=== PATIENT | female | born 1955 | race Caucasian/White ===

== ENCOUNTER → 2016-11-22 | Outpatient (CLI) | payer BC ==
[2016-11-22 07:11] LABS: MEAN CORPUSCULAR HEMOGLOBIN 30.5 pg (27.0-33.0); MEAN CORPUSCULAR HGB CONC 33.1 g/dl (32.0-36.5); RED CELL DISTRIBUTION WIDTH 12.9 % (11.5-14.5); WHITE BLOOD COUNT 10.1 K/mm3 (4.0-10.0)
[2016-11-22 07:35] LABS: ALBUMIN 3.9 GM/DL (3.2-5.2); ALBUMIN/GLOBULIN RATIO 1.18 (1.00-1.93); ALKALINE PHOSPHATASE 78 U/L (45-117); ALT/SGPT 19 U/L (12-78); ANION GAP 9 MEQ/L (8-16); AST/SGOT 13 U/L (15-37); BILIRUBIN,TOTAL 0.2 MG/DL (0.2-1.0); BLOOD UREA NITROGEN 22 MG/DL (7-18); CARBON DIOXIDE LEVEL 28 MEQ/L (21-32); CHLORIDE LEVEL 103 MEQ/L (98-107); CHOLESTEROL LEVEL 152 MG/DL (<200); CREATININE FOR GFR 0.45 MG/DL (0.55-1.02); FREE T4 1.05 NG/DL (0.76-1.46); GLOMERULAR FILTRATION RATE > 60.0 (>45); GLUCOSE, FASTING 149 MG/DL (80-110); POTASSIUM SERUM 4.1 MEQ/L (3.5-5.1); SODIUM LEVEL 140 MEQ/L (136-145); TOTAL PROTEIN 7.2 GM/DL (6.4-8.2); TRIGLYCERIDES LEVEL 153 MG/DL (<150)
== END ==
LOC: M LAB 06:14
PROVIDERS: ATTEND Family Medicine
DX: E03.9 Hypothyroidism, unspecified (principal); E11.9 Type 2 diabetes mellitus without complications

== ENCOUNTER → 2016-12-05 | Outpatient (CLI) | payer BC ==
--- NOTE | 2016-12-05 12:58 | REP ---
PA and lateral chest: Comparison is 01/05/2017. There is a small focal linear density in the left costophrenic angle as an interval change, likely discoid atelectasis. The remainder the lung bishop are clear and unchanged. Cardiac size is borderline, unchanged. The jaime, mediastinum, and bony thorax are unremarkable for patient age, and unchanged. Impression: Small focal discoid atelectasis versus scarring in the left costophrenic angle. Borderline cardiac size. Otherwise, negative chest. Signed by Grayson Yao MD 12/05/2016 12:50 P
== END ==
LOC: M SMT 11:46
PROVIDERS: ATTEND Internal Medicine Pulmonary Disease
DX: J44.9 Chronic obstructive pulmonary disease, unspecified (principal); R91.8 Other nonspecific abnormal finding of lung field

== ENCOUNTER 2016-12-25 08:21 | Emergency (ER) | payer BC ==
[~2016-12-25] VITALS: Ht 154.9 cm; Wt 101.6 kg
[2016-12-25] MEDS ORDERED: ASPI81TA7 PO (08:41)
[2016-12-25] MEDS ORDERED: ATOR40TA PO (08:41)
[2016-12-25] MEDS ORDERED: INVO1TAB2 PO ×2 (08:41)
[2016-12-25] MEDS ORDERED: CPAP (08:41)
[2016-12-25] MEDS ORDERED: LEVO25TA5 PO (08:41)
[2016-12-25] MEDS ORDERED: ONGL10TA3 PO (08:41)
[2016-12-25] MEDS ORDERED: ENAL5TAB PO (08:41)
[2016-12-25] MEDS ORDERED: GLIM4TAB PO (08:41)
[2016-12-25] MEDS ORDERED: ADACEL/BOOSTRIX VACCINE (DIPHTH/PERTUSS/ACELL/TETANUS)0.5ML SYR (90715) IM ONE (08:45)
--- NOTE | 2016-12-25 09:00 | REP ---
CT of the cervical spine: Axial images are acquired in the reformatted sagittal and coronal projections. Skull base, C1-C2 are unremarkable except for osteoarthritis. Vertebral body heights and alignment are normal. There is degenerative disc disease at C 04/05, 05/06, 06/07, and C7-T1. The facets are normally aligned. Prevertebral soft tissues are normal. There are no posterior element fractures. Impression: There is no fracture or listhesis. There is multilevel degenerative disc disease. Signed by Grayson Yao MD 12/25/2016 08:52 A
--- NOTE | 2016-12-25 09:14 | REP ---
Right knee five views: There is no fracture or dislocation. There is no hemarthrosis. There is mild osteoarthritis in the medial and patellofemoral compartments. Mineralization is normal. There are no unusual calcifications. Signed by Grayson Yao MD 12/25/2016 09:06 A
--- NOTE | 2016-12-25 09:21 | REP ---
PA and lateral chest: Comparison is 12/05/2016. The lung bishop are clear. The minor discoid atelectasis noted in the left costophrenic angle previously has resolved. There is no pneumothorax, hemothorax or pulmonary contusion. No rib fractures are identified. No clavicle, scapular fractures are identified. Cardiac size is borderline enlarged, unchanged. The jaime, mediastinum, and bony thorax are unremarkable and unchanged for patient age. Impression: Essentially negative PA and lateral chest. Signed by Grayson Yao MD 12/25/2016 09:12 A
--- NOTE | 2016-12-25 09:22 | REP ---
Right foot four views: There is diffuse demineralization. There is no fracture or dislocation. No calcifications or foreign bodies. Impression: Demineralization. No fracture or dislocation. Signed by Grayson Yao MD 12/25/2016 09:13 A
[2016-12-25] MEDS ORDERED: NORCOTAB PO (11:10)
[2016-12-25 11:21] VITALS: BP 127/57
== END 2016-12-25 11:22 | disposition home or self-care (01) ==
LOC: EDBD 08:21 → M ED 09:35
DX: T14.8 Other injury of unspecified body region (principal); W10.8XXA Fall (on) (from) other stairs and steps, initial encounter; Y92.018 Other place in single-family (private) house as the place of occurrence of the external cause; Y93.89 Activity, other specified; Y99.8 Other external cause status; I10 Essential (primary) hypertension; E11.9 Type 2 diabetes mellitus without complications; I25.10 Atherosclerotic heart disease of native coronary artery without angina pectoris; G47.30 Sleep apnea, unspecified; Z79.899 Other long term (current) drug therapy; Z79.82 Long term (current) use of aspirin; Z88.2 Allergy status to sulfonamides; Z88.8 Allergy status to other drugs, medicaments and biological substances

== ENCOUNTER → 2017-03-23 | Outpatient (CLI) | payer BC ==
[~2017-03-23] MED LIST: ASPI1TAB15 PO; ATOR40TA75 PO; CPAP; ENAL5TAB PO; GLIM4TAB PO; INVO1TAB2 PO; LEVO25TA5 PO; NORCOTAB PO; ONGL10TA3 PO
--- NOTE | 2017-03-23 16:59 | REPMRS ---
Patient History The patient states she had a clinical breast exam in 08/2016. Patient has history of other cancer at age 44 and is nulliparous. Family history of colorectal cancer in sister at age 50 and breast cancer in paternal cousin under age 50. Took estrogen for 10 years. Digital Woman Screen Mammo: March 23, 2017 - Exam #: [id number] Bilateral CC and MLO view(s) were taken. Technologist: Angelica Barajas, Technologist Prior study comparison: March 09, 2016, digital woman screen mammo performed at [facility]. February 19, 2015, digital woman screen mammo performed at [facility]. February 18, 2014, digital woman screen mammo performed at [facility]. FINDINGS: There are scattered fibroglandular densities. There has been no change in the appearance of the mammogram from the prior studies. There is a mild amount of scattered fibroglandular density which is fairly symmetric. There is no interval development of dominant mass, architectural distortion, or clustered microcalcification suggestive of malignancy. ASSESSMENT: BI-RADS/ACR category 1 mammogram. Negative. Recommendation Routine screening mammogram in 1 year (for women over age 40). This mammogram was interpreted with the aid of an FDA-approved computer-aided dectection system. Electronically Signed By: Richard Corona MD 03/23/17 2106
== END ==
LOC: M WHC 16:07
PROVIDERS: ATTEND Obstetrics & Gynecology
DX: Z12.31 Encounter for screening mammogram for malignant neoplasm of breast (principal)

== ENCOUNTER → 2017-12-25 | Outpatient (CLI) | payer BC ==
[2017-12-25 06:59] LABS: BASO # 0.1 10^3/uL (0.0-0.2); BASO % 0.6 % (0.0-1.0); EOS # 0.1 10^3/uL (0.0-0.50); EOS % 1.5 % (0.0-3.0); HEMATOCRIT 41.1 % (36.0-47.0); HEMOGLOBIN 13.7 g/dl (12.0-15.5); IMMATURE GRANULOCYTE % 0.2 % (0-3.0); LYMPH # 2.6 10^3/uL (1.5-4.5); LYMPH % 29.7 % (24.0-44.0); MEAN CORPUSCULAR HEMOGLOBIN 30.6 pg (27.0-33.0); MEAN CORPUSCULAR HGB CONC 33.3 g/dl (32.0-36.5); MEAN CORPUSCULAR VOLUME 91.9 fl (80.0-96.0); MONO # 0.7 10^3/uL (0.0-0.8); MONO % 7.4 % (0.0-5.0); NEUTROPHILS # 5.4 10^3/uL (1.8-7.7); NEUTROPHILS % 60.6 % (36.0-66.0); PLATELET COUNT, AUTOMATED 344 10^3/uL (150-450); RED BLOOD COUNT 4.47 10^6/uL (4.00-5.40); RED CELL DISTRIBUTION WIDTH 12.9 % (11.5-14.5); WHITE BLOOD COUNT 8.8 10^3/uL (4.0-10.0)
[2017-12-25 07:19] LABS: CREATININE, URINE 75.7 MG/DL; CREATININE,RANDOM URINE 75.7 MG/DL; MAU/CREAT RATIO 153.2 MCG/MG (0.0-30.0)
[2017-12-25 07:32] LABS: ALBUMIN 4.1 GM/DL (3.2-5.2); ALBUMIN/GLOBULIN RATIO 1.21 (1.00-1.93); ALKALINE PHOSPHATASE 77 U/L (45-117); ALT/SGPT 19 U/L (12-78); ANION GAP 9 MEQ/L (8-16); AST/SGOT 13 U/L (7-37); BILIRUBIN,TOTAL 0.2 MG/DL (0.2-1.0); BLOOD UREA NITROGEN 24 MG/DL (7-18); CALCIUM LEVEL 9.6 MG/DL (8.8-10.2); CARBON DIOXIDE LEVEL 27 MEQ/L (21-32); CHLORIDE LEVEL 105 MEQ/L (98-107); CHOLESTEROL LEVEL 159 MG/DL (<200); CHOLESTEROL RISK RATIO 3.117 (<5); CREATININE FOR GFR 0.49 MG/DL (0.55-1.30); GLOMERULAR FILTRATION RATE > 60.0 (>45); GLUCOSE, FASTING 139 MG/DL (70-100); HDL CHOLESTEROL 51 MG/DL (>40); LDL CHOLESTEROL 82.2 MG/DL (<100); NON-HDL-C 108 MG/DL; POTASSIUM SERUM 4.3 MEQ/L (3.5-5.1); SODIUM LEVEL 141 MEQ/L (136-145); TOTAL PROTEIN 7.5 GM/DL (6.4-8.2); TRIGLYCERIDES LEVEL 129 MG/DL (<150)
[2017-12-25 11:46] LABS: ESTIMATED AVERAGE GLUCOSE 148 MG/DL (60-110); HEMOGLOBIN A1c 6.8 %
== END ==
LOC: M LAB 06:04
DX: E11.9 Type 2 diabetes mellitus without complications (principal)

== ENCOUNTER → 2018-03-26 | Outpatient (CLI) | payer BC | LOC: M WHC 14:22 | DX: Z12.31 Encounter for screening mammogram for malignant neoplasm of breast (principal); Z80.3 Family history of malignant neoplasm of breast | CPT/HCPCS: 77067 ==

== ENCOUNTER → 2018-05-08 | Outpatient (CLI) | payer BC ==
[2018-05-08 09:43] LABS: BASO % 0.2 % (0.0-1.0); EOS % 0.1 % (0.0-3.0); HEMATOCRIT 40.7 % (36.0-47.0); HEMOGLOBIN 13.4 g/dl (12.0-15.5); IMMATURE GRANULOCYTE % 0.3 % (0-3.0); LYMPH # 2.1 10^3/uL (1.5-4.5); LYMPH % 17.5 % (24.0-44.0); MEAN CORPUSCULAR HEMOGLOBIN 30.2 pg (27.0-33.0); MEAN CORPUSCULAR HGB CONC 32.9 g/dl (32.0-36.5); MEAN CORPUSCULAR VOLUME 91.7 fl (80.0-96.0); MONO # 0.6 10^3/uL (0.0-0.8); MONO % 4.8 % (0.0-5.0); NEUTROPHILS # 9.4 10^3/uL (1.8-7.7); NEUTROPHILS % 77.1 % (36.0-66.0); PLATELET COUNT, AUTOMATED 376 10^3/uL (150-450); RED BLOOD COUNT 4.44 10^6/uL (4.00-5.40); RED CELL DISTRIBUTION WIDTH 12.7 % (11.5-14.5); WHITE BLOOD COUNT 12.1 10^3/uL (4.0-10.0)
[2018-05-08 10:03] LABS: ALBUMIN 4.2 GM/DL (3.2-5.2); ALBUMIN/GLOBULIN RATIO 1.17 (1.00-1.93); ALKALINE PHOSPHATASE 78 U/L (45-117); ALT/SGPT 17 U/L (12-78); ANION GAP 10 MEQ/L (8-16); AST/SGOT 9 U/L (7-37); BILIRUBIN,TOTAL 0.3 MG/DL (0.2-1.0); BLOOD UREA NITROGEN 15 MG/DL (7-18); C REACTIVE PROTEIN QUANTITATIV < 0.30 MG/DL (0.00-0.30); CARBON DIOXIDE LEVEL 29 MEQ/L (21-32); CHLORIDE LEVEL 100 MEQ/L (98-107); CREATININE FOR GFR 0.56 MG/DL (0.55-1.30); GLOMERULAR FILTRATION RATE > 60.0 (>45); GLUCOSE, FASTING 155 MG/DL (70-100); POTASSIUM SERUM 4.3 MEQ/L (3.5-5.1); SODIUM LEVEL 139 MEQ/L (136-145); TOTAL PROTEIN 7.8 GM/DL (6.4-8.2)
[2018-05-08 10:14] LABS: ERYTHROCYTE SEDIMENTATION RATE 9 mm/hr (0-30)
== END ==
LOC: M WUC 08:06
DX: L30.9 Dermatitis, unspecified (principal)

== ENCOUNTER → 2018-12-25 | Outpatient (CLI) | payer BC ==
[~2018-12-25] MED LIST changes: +HYDR-3715 PO; -NORCOTAB PO
[2018-12-25 09:27] LABS: BASO % 0.5 % (0.0-1.0); EOS # 0.1 10^3/uL (0.0-0.50); EOS % 1.5 % (0.0-3.0); HEMATOCRIT 41.6 % (36.0-47.0); HEMOGLOBIN 13.3 g/dl (12.0-15.5); LYMPH # 2.1 10^3/uL (1.5-4.5); LYMPH % 25.9 % (24.0-44.0); MEAN CORPUSCULAR HEMOGLOBIN 30.5 pg (27.0-33.0); MEAN CORPUSCULAR VOLUME 95.4 fl (80.0-96.0); MONO # 0.5 10^3/uL (0.0-0.8); MONO % 6.2 % (0.0-5.0); NEUTROPHILS # 5.4 10^3/uL (1.8-7.7); NEUTROPHILS % 65.5 % (36.0-66.0); PLATELET COUNT, AUTOMATED 321 10^3/uL (150-450); RED BLOOD COUNT 4.36 10^6/uL (4.00-5.40); WHITE BLOOD COUNT 8.2 10^3/uL (4.0-10.0)
[2018-12-25 09:57] LABS: CREATININE, URINE 51.7 MG/DL; MALB URINE SIEMENS 56.3 MG/L; MAU/CREAT RATIO 108.8 MCG/MG (0.0-30.0)
[2018-12-25 09:59] LABS: ALT/SGPT 22 U/L (12-78); BILIRUBIN,TOTAL 0.3 MG/DL (0.2-1.0); BLOOD UREA NITROGEN 21 MG/DL (7-18); CALCIUM LEVEL 9.6 MG/DL (8.8-10.2); CARBON DIOXIDE LEVEL 29 MEQ/L (21-32); CHLORIDE LEVEL 102 MEQ/L (98-107); CHOLESTEROL LEVEL 167 MG/DL (<200); CHOLESTEROL RISK RATIO 3.408 (<5); CREATININE FOR GFR 0.51 MG/DL (0.55-1.30); FREE T3 2.3 PG/ML (2.2-4.0); FREE T4 1.04 NG/DL (0.76-1.46); GLOMERULAR FILTRATION RATE > 60.0 (>45); GLUCOSE, FASTING 152 MG/DL (70-100); HDL CHOLESTEROL 49 MG/DL (>40); LDL CHOLESTEROL 66 MG/DL (<100); NON-HDL-C 118 MG/DL; POTASSIUM SERUM 4.3 MEQ/L (3.5-5.1); SODIUM LEVEL 138 MEQ/L (136-145); TOTAL PROTEIN 7.1 GM/DL (6.4-8.2); TRIGLYCERIDES LEVEL 262 MG/DL (<150)
[2018-12-25 10:35] LABS: HEMOGLOBIN A1c 7.6 %
== END ==
LOC: M WUC 08:02
PROVIDERS: ATTEND Family Medicine
DX: E03.9 Hypothyroidism, unspecified (principal); E11.9 Type 2 diabetes mellitus without complications

== ENCOUNTER → 2019-04-01 | Outpatient (CLI) | payer MEDICARE ==
--- NOTE | 2019-04-01 14:31 | REP ---
BILATERAL SCREENING DIGITAL MAMMOGRAM WITH 3D TOMOSYNTHESIS: There are no palpable abnormalities or other breast complaints. The the patient states she has not had a clinical breast examination in over a year. The the patient states she performs self-breast examinations zero times per year. The Tyrer-Cuzick Score is: 6.7% . Comparison is 02/18/2014. There are scattered areas of fibroglandular density. There is no dominant mass, micro calcific cluster or architectural distortion that would indicate malignancy. Sinus suspect there is a skin lesion anteriorly in the right breast superomedially on the tomosynthesis images. There are no additional findings on 3D tomosynthesiss. There is no change from the prior study. Impression: BIRADS/ACR category 2 mammogram. Benign findings . Recommendation: Routine annual screening mammography. This mammogram was interpreted with the aid of a FDA approved computer-aided detection system. A. Negative mammogram reports should not delay biopsy if a dominant or clinically suspicious mass is present. B. Not all breast cancers are identified by mammography or tomosynthesis. C. Adenosis and dense breasts may obscure an underlying neoplasm. Patient letter M1. Electronically Signed by Grayson Yao MD 04/01/2019 02:23 P
== END ==
LOC: M WHC 13:27
PROVIDERS: ATTEND Obstetrics & Gynecology
DX: Z12.31 Encounter for screening mammogram for malignant neoplasm of breast (principal)

== ENCOUNTER → 2019-10-02 | Outpatient (CLI) | payer MEDICARE ==
[~2019-10-02] MED LIST changes: -GLIM4TAB PO; +GLIM4TAB5 PO
[2019-10-02 09:51] LABS: HEMATOCRIT 41.8 % (36.0-47.0); HEMOGLOBIN 13.5 g/dl (12.0-15.5); MEAN CORPUSCULAR HEMOGLOBIN 30.8 pg (27.0-33.0); MEAN CORPUSCULAR HGB CONC 32.3 g/dl (32.0-36.5); MEAN CORPUSCULAR VOLUME 95.2 fl (80.0-96.0); PLATELET COUNT, AUTOMATED 323 10^3/uL (150-450); RED BLOOD COUNT 4.39 10^6/uL (4.00-5.40); WHITE BLOOD COUNT 8.3 10^3/uL (4.0-10.0)
[2019-10-02 10:25] LABS: CREATININE, URINE 94.3 MG/DL; CREATININE,RANDOM URINE 94.3 MG/DL; MALB URINE SIEMENS 45.9 MG/L; MAU/CREAT RATIO 48.6 MCG/MG (0.0-30.0)
[2019-10-02 10:27] LABS: ALT/SGPT 19 U/L (12-78); BILIRUBIN,TOTAL 0.3 MG/DL (0.2-1.0); BLOOD UREA NITROGEN 19 MG/DL (7-18); CARBON DIOXIDE LEVEL 31 MEQ/L (21-32); CHLORIDE LEVEL 103 MEQ/L (98-107); CHOLESTEROL LEVEL 166 MG/DL (<200); CHOLESTEROL RISK RATIO 3.254 (<5); CREATININE FOR GFR 0.52 MG/DL (0.55-1.30); FREE T3 2.1 PG/ML (2.2-4.0); FREE T4 1.09 NG/DL (0.76-1.46); GLOMERULAR FILTRATION RATE > 60.0 (>45); GLUCOSE, FASTING 133 MG/DL (70-100); HDL CHOLESTEROL 51 MG/DL (>40); LDL CHOLESTEROL 81 MG/DL (<100); NON-HDL-C 115 MG/DL; POTASSIUM SERUM 4.2 MEQ/L (3.5-5.1); SODIUM LEVEL 140 MEQ/L (136-145); TOTAL PROTEIN 7.2 GM/DL (6.4-8.2); TRIGLYCERIDES LEVEL 170 MG/DL (<150)
[2019-10-02 10:50] LABS: ERYTHROCYTE SEDIMENTATION RATE 27 mm/hr (0-30)
== END ==
LOC: M WUC 08:11
PROVIDERS: ATTEND Family Medicine
DX: E03.9 Hypothyroidism, unspecified (principal); E11.9 Type 2 diabetes mellitus without complications; M35.3 Polymyalgia rheumatica

== ENCOUNTER → 2020-02-25 | Outpatient (CLI) | payer MEDICARE ==
--- NOTE | 2020-02-25 14:27 | REP ---
REASON: Pain after sprain. COMPARISON: 12/25/2016 There is a fracture involving the distal diaphysis of the 5th metatarsal, which is slightly comminuted. There are chronic changes seen throughout the right foot as well, status quo. IMPRESSION: Acute 5th metatarsal fracture seen in conjunction with chronic changes. Electronically Signed by Fabiano Snow DO 02/25/2020 05:21 P
== END ==
LOC: M WUC 10:24
PROVIDERS: ATTEND Physician Assistant
DX: S92.351A Displaced fracture of fifth metatarsal bone, right foot, initial encounter for closed fracture (principal); X58.XXXA Exposure to other specified factors, initial encounter; Y92.9 Unspecified place or not applicable

== ENCOUNTER → 2020-04-20 | Outpatient (CLI) | payer MEDICARE ==
[~2020-04-20] MED LIST changes: +ASPI-546 PO; -ASPI1TAB15 PO; +ENAL5TA PO; -ENAL5TAB PO
--- NOTE | 2020-05-05 15:47 | REPMRS ---
Patient History The patient states she had a clinical breast exam in 09/2019. Patient has history of other cancer at age 44 and is nulliparous. Family history of breast cancer under age 50 in paternal cousin, colorectal cancer at age 50 in sister. Took estrogen for 10 years. Digital Woman Screen Mammo: April 20, 2020 - Exam #: [id number] Bilateral CC and MLO view(s) were taken. Technologist: Angelica Barajas, Technologist Prior study comparison: April 01, 2019, bilateral digital woman screen mammo performed at [facility]. March 26, 2018, bilateral digital woman screen mammo performed at [facility]. March 23, 2017, digital woman screen mammo performed at [facility]. FINDINGS: There are scattered fibroglandular densities. The Volpara volumetric breast density category is:B. There has been no change in the appearance of the mammogram from the prior studies. There is a mild amount of scattered fibroglandular density which is fairly symmetric. There is no interval development of dominant mass, architectural distortion, or grouped microcalcification suggestive of malignancy. 3-D tomosynthesis shows no additional findings. Assessment: BI-RADS/ACR category 1 mammogram. Negative Mammogram. Recommendation Routine screening mammogram of both breasts in 1 year (for women over age 40). This patient's Lifetime Breast Cancer Risk is estimated at 7.9 %. This mammogram was interpreted with the aid of an FDA-approved computer-aided dectection system. Electronically Signed By: Richard Corona MD 05/05/20 1535
== END ==
LOC: M WHC 17:14
PROVIDERS: ATTEND Obstetrics & Gynecology
DX: Z12.31 Encounter for screening mammogram for malignant neoplasm of breast (principal); Z85.9 Personal history of malignant neoplasm, unspecified; Z80.0 Family history of malignant neoplasm of digestive organs

== ENCOUNTER → 2020-10-13 | Outpatient (CLI) | payer MEDICARE ==
[2020-10-13 10:13] LABS: HEMATOCRIT 43.6 % (36.0-47.0); HEMOGLOBIN 13.6 g/dl (12.0-15.5); MEAN CORPUSCULAR HEMOGLOBIN 30.1 pg (27.0-33.0); MEAN CORPUSCULAR HGB CONC 31.2 g/dl (32.0-36.5); MEAN CORPUSCULAR VOLUME 96.5 fl (80.0-96.0); PLATELET COUNT, AUTOMATED 344 10^3/uL (150-450); RED BLOOD COUNT 4.52 10^6/uL (4.00-5.40)
[2020-10-13 10:48] LABS: ALT/SGPT 25 U/L (12-78); BILIRUBIN,TOTAL 0.2 MG/DL (0.2-1.0); BLOOD UREA NITROGEN 17 MG/DL (7-18); CALCIUM LEVEL 9.4 MG/DL (8.8-10.2); CARBON DIOXIDE LEVEL 29 MEQ/L (21-32); CHLORIDE LEVEL 103 MEQ/L (98-107); CHOLESTEROL LEVEL 176 MG/DL (<200); CREATININE FOR GFR 0.66 MG/DL (0.55-1.30); FREE T3 2.8 PG/ML (2.2-4.0); FREE T4 1.11 NG/DL (0.76-1.46); GLOMERULAR FILTRATION RATE > 60.0 (>45); GLUCOSE, FASTING 166 MG/DL (70-100); HDL CHOLESTEROL 50 MG/DL (>40); LDL CHOLESTEROL 99 MG/DL (<100); NON-HDL-C 126 MG/DL; POTASSIUM SERUM 4.3 MEQ/L (3.5-5.1); SODIUM LEVEL 140 MEQ/L (136-145); TOTAL PROTEIN 7.2 GM/DL (6.4-8.2); TRIGLYCERIDES LEVEL 136 MG/DL (<150)
[2020-10-13 10:51] LABS: MALB URINE SIEMENS 90.3 MG/L; MAU/CREAT RATIO 85.1 MCG/MG (0.0-30.0)
== END ==
LOC: M WUC 08:05
PROVIDERS: ATTEND Family Medicine
DX: E03.9 Hypothyroidism, unspecified (principal); E11.9 Type 2 diabetes mellitus without complications

== ENCOUNTER → 2021-02-12 | Outpatient (CLI) | payer MEDICARE ==
--- NOTE | 2021-02-12 16:19 | REP ---
INDICATION: PAIN COMPARISON: 02/25/2020. TECHNIQUE: Four views right foot. FINDINGS: There is an old healed fracture of the distal 5th metatarsal. No acute fracture or dislocation is seen. There is mild inferior calcaneal spurring. There is mild dorsal navicular spurring. Mild vascular calcifications are seen in the soft tissues. There is moderate narrowing with subchondral sclerosis at the 1st metatarsophalangeal joint. There is mild spurring of the head of the 1st metatarsal. IMPRESSION: No acute findings. Old healed fracture distal 5th metatarsal. Degenerative changes as above. <Electronically signed by Grayson Suarez > 02/12/21 2147
== END ==
LOC: M WUC 10:15
PROVIDERS: ATTEND Physician Assistant
DX: M79.671 Pain in right foot (principal); Z87.81 Personal history of (healed) traumatic fracture; M77.31 Calcaneal spur, right foot; M19.071 Primary osteoarthritis, right ankle and foot

== ENCOUNTER → 2021-03-01 | Outpatient (CLI) | payer MEDICARE ==
--- NOTE | 2021-03-01 13:32 | REP ---
INDICATION: INJURY. POST TIBIAL TENDON. COMPARISON: Comparison radiographs of the right foot are from February 12, 2021.. TECHNIQUE: Axial, coronal, and sagittal imaging planes utilized. T1 and T2 weighted scans are obtained in the usual fashion with without fat saturation. FINDINGS: There is slight flattening of the plantar arch on sagittal multiplanar re-formation images. There is moderate midfoot osteoarthritis with subcortical cyst formation in the calcaneocuboid and naviculocuneiform articulations. Mild superior spurring is seen at the midfoot articulations as noted radiographically. Cortical and medullary bone signal intensity are otherwise normal. There is no evidence of bony destructive lesion. There is plantar calcaneal spurring with some T2 hyperintensity at the proximal plantar fascial insertion. The Achilles tendon is unremarkable. There is osteoarthritic spurring at the 1st MTP joint. Laterally, the peroneus longus and brevis tendons appear unremarkable. Flexor hallucis longus and flexor digitorum tendons appear intact. There is swelling and increased signal intensity along the distal 2 cm of the tibialis posterior tendon consistent with fairly advanced tibialis posterior tendinosis. No angelica discontinuity is seen but signal intensity is somewhat heterogeneous. I cannot exclude a partial tear. There is no evidence of ligament disruption. exam is otherwise unremarkable. 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 Plantar heel spur. <Electronically signed by Richard Corona > 03/01/21 [id number]
== END ==
LOC: M PLAIMG 11:05
PROVIDERS: ATTEND Podiatrist
DX: S96.011A Strain of muscle and tendon of long flexor muscle of toe at ankle and foot level, right foot, initial encounter (principal); M19.071 Primary osteoarthritis, right ankle and foot; M77.31 Calcaneal spur, right foot; M76.821 Posterior tibial tendinitis, right leg; X58.XXXA Exposure to other specified factors, initial encounter; Y92.9 Unspecified place or not applicable

== ENCOUNTER → 2021-05-17 | Outpatient (CLI) | payer MEDICARE ==
--- NOTE | 2021-05-17 10:46 | REPMRS ---
Patient History The patient states she has not had a clinical breast exam in over a year. Family history of breast cancer under age 50 in paternal cousin, colorectal cancer at age 50 in sister. Took estrogen for 10 years. Moderna vaccine 09/28/19 left arm. 10/25/20 left arm. Patient states no breast complaints today. Patient has signed MRS History Sheet. Digital Woman Screen Mammo: May 17, 2021 - Exam #: [id number] Bilateral CC and MLO view(s) were taken. Technologist: RT Leonor Prior study comparison: April 20, 2020, bilateral digital woman screen mammo performed at [facility]. April 01, 2019, bilateral digital woman screen mammo performed at [facility]. FINDINGS: There are scattered fibroglandular densities. Screening. Digital screening (2D) mammography was performed bilaterally in the CC and MLO projections. Additionally, breast tomosynthesis (3D mammography) was performed bilaterally in the CC and MLO projections. Todays exam was compared to the prior exam/exams. By history, the patient has no complaints of a palpable breast abnormality or other significant breast complaints. The breasts are unchanged in size and shape. There are no stevo-soft tissue densities or spiculated masses. There is no internal architectural distortion. Once again, stable benign appearing calcifications are seen.There are no suspicious stevo-calcific clusters. Skin thickening or nipple retraction is not present. IMPRESSION: BI-RADS Category 2- Benign Findings. There is no evidence of malignant alteration of the breasts. Followup examination recommended in one year. The Volpara volumetric breast density category is B, there are scattered areas of fibroglandular densities. This mammogram was read with the assistance of [facility] [employer],an FDA approved computer aided detection system for mammography. The lifetime Tyrer-Cuzick score is 7.5 % Negative x-ray reports should not delay surgical consultation if a dominant or clinically suspicious mass is present. Not all breast cancers can be identified by mammography. Therefore, we recommend that you continue to perform regular breast self-examination and physical examination and then promptly contact your physician of any concerns or changes. Adenosis and dense breasts may obscure an underlying neoplasm. Assessment: BI-RADS/ACR category 2 mammogram. Benign Findings. Recommendation Routine screening mammogram of both breasts in 1 year. Electronically Signed By: Fabiano Snow DO 05/17/21 [id number]
== END ==
LOC: M WHC 09:50
PROVIDERS: ATTEND Family Medicine
DX: Z12.31 Encounter for screening mammogram for malignant neoplasm of breast (principal); Z80.3 Family history of malignant neoplasm of breast

== ENCOUNTER → 2021-05-18 | Outpatient (CLI) | payer MEDICARE | LOC: M WUC 10:40 | PROVIDERS: ATTEND Family Medicine | DX: M35.3 Polymyalgia rheumatica (principal) ==

== ENCOUNTER → 2021-05-26 | Outpatient (CLI) | payer MEDICARE ==
--- NOTE | 2021-05-26 11:26 | DEXAMM ---
INDICATION: Z13.820 SCR FOR OSTEOPOROSIS. COMPARISON: 07/03/2009, 08/09/2004 TECHNIQUE: Bone density was measured using dual-energy x-ray absorptiometry (DEXA). FINDINGS: AP SPINE L1-L4 BMD 1.405 g/cm2 Young Adult T-Score 1.5 Age Matched Z-Score 3.1. LT FEMUR, TOTAL BMD 1.137 g/cm2 Young Adult T-Score 1.0 Age Matched Z-Score 2.3. LT NECK BMD 1.043 g/cm2 Young Adult T-Score 0.0 Age Matched Z-Score 1.6. RT FEMUR, TOTAL BMD 1.128 g/cm2 Young Adult T-Score 1.0 Age Matched Z-Score 2.3. RT NECK BMD 1.009 g/cm2 Young Adult T-Score -0.2 Age Matched Z-Score 1.4. IMPRESSION: There is normal bone density of the spine. There is normal bone density of the left hip. There is normal bone density of the right hip. The density of the spine has increased 0.7% since the initial exam on 08/09/2004. The density of the spine increased 0.9% since most recent exam on 07/03/2009. The density of the left hip has decreased 8.5% since initial exam on 08/09/2004. The density of the left hip has decreased 8.6% since most recent exam on 07/03/2009. The density of the right hip has decreased 11.1% since the initial exam on 08/09/2004. The density of the right hip has decreased 11.0% since the most recent exam on 07/03/2009. FOLLOW-UP: Recommendation for the next bone density exam: 5 years. <Electronically signed by Grayson Suarez > 05/26/21 1122
== END ==
LOC: M WHC 09:48
PROVIDERS: ATTEND Family Medicine
DX: Z13.820 Encounter for screening for osteoporosis (principal); M85.89 Other specified disorders of bone density and structure, multiple sites

== ENCOUNTER → 2021-11-12 | Outpatient (CLI) | payer MEDICARE ==
[2021-11-12 11:31] LABS: HEMATOCRIT 40.6 % (36.0-47.0); MEAN CORPUSCULAR HEMOGLOBIN 30.4 pg (27.0-33.0); MEAN CORPUSCULAR VOLUME 94.9 fl (80.0-96.0); PLATELET COUNT, AUTOMATED 330 10^3/uL (150-450); RED BLOOD COUNT 4.28 10^6/uL (4.00-5.40); WHITE BLOOD COUNT 9.7 10^3/uL (4.0-10.0)
[2021-11-12 12:01] LABS: HEMOGLOBIN A1c 7.5 %
[2021-11-12 12:21] LABS: ALT/SGPT 26 U/L (12-78); BILIRUBIN,TOTAL 0.3 MG/DL (0.2-1.0); BLOOD UREA NITROGEN 17 MG/DL (7-18); CALCIUM LEVEL 10.3 MG/DL (8.8-10.2); CARBON DIOXIDE LEVEL 31 MEQ/L (21-32); CHLORIDE LEVEL 102 MEQ/L (98-107); CHOLESTEROL LEVEL 180 MG/DL (<200); CHOLESTEROL RISK RATIO 3.673 (<5); CREATININE FOR GFR 0.58 MG/DL (0.55-1.30); FREE T3 2.4 PG/ML (2.2-4.0); FREE T4 1.07 NG/DL (0.76-1.46); GLOMERULAR FILTRATION RATE > 60.0 (>45); GLUCOSE, FASTING 145 MG/DL (70-100); HDL CHOLESTEROL 49 MG/DL (>40); LDL CHOLESTEROL 82 MG/DL (<100); NON-HDL-C 131 MG/DL; POTASSIUM SERUM 4.3 MEQ/L (3.5-5.1); SODIUM LEVEL 138 MEQ/L (136-145); THYROID STIMULATING HORMONE 0.873 uIU/ML (0.358-3.740); TOTAL PROTEIN 7.7 GM/DL (6.4-8.2); TRIGLYCERIDES LEVEL 244 MG/DL (<150)
== END ==
LOC: M WUC 08:08
PROVIDERS: ATTEND Family Medicine
DX: E11.9 Type 2 diabetes mellitus without complications (principal); E03.9 Hypothyroidism, unspecified

== ENCOUNTER → 2022-05-30 | Outpatient (CLI) | payer MEDICARE | LOC: M WHC 10:06 | PROVIDERS: ATTEND Obstetrics & Gynecology | DX: Z12.31 Encounter for screening mammogram for malignant neoplasm of breast (principal) ==

== ENCOUNTER → 2022-12-08 | Outpatient (CLI) | payer MEDICARE ==
[~2022-12-08] MED LIST changes: +CALCTAB89 PO; +ECOT81TA5 PO; +ENAL1TAB48 PO; -ENAL5TA PO; +JANU100T; +LOTE5DRO9; +OMEG10002 PO; +SPIR1CAP; +VITAD400CA FT; +VITMTA PO; +ZINC100T3 PO
[2022-12-08 10:44] LABS: INR 0.88; PARTIAL THROMBOPLASTIN TIME 26.4 SECONDS (24.8-34.2); PROTHROMBIN TIME 12.1 SECONDS (12.5-14.5)
== END ==
LOC: M WUC 08:10
PROVIDERS: ATTEND Internal Medicine Medical Oncology
DX: D37.6 Neoplasm of uncertain behavior of liver, gallbladder and bile ducts (principal)

== ENCOUNTER → 2022-12-09 | Outpatient (CLI) | payer MEDICARE ==
[~2022-12-09] MED LIST changes: +ACETAMINOPHEN 325 MG TAB As Ordered ONE; +ACETAMINOPHEN TAB 650MG DOSE (2X325MG) PO PRN; +ENAL1TAB50 PO; +HYDR-3713 PO; -JANU100T; +JANU100T PO; +LEVO100T5 PO; +LIDOCAINE 1% MDV 20ML VIAL As Ordered ONE; -LOTE5DRO9; +LOTE5DRO9 OU; -SPIR1CAP; +SPIR1CAP INH; -VITAD400CA FT; +VITAD400CA PO
[2022-12-09 11:00] VITALS: BP 146/68
== END ==
LOC: M IRPRO 08:04
PROVIDERS: ATTEND Internal Medicine Medical Oncology
DX: C22.9 Malignant neoplasm of liver, not specified as primary or secondary (principal)

== ENCOUNTER 2022-12-13 14:01 | Observation (INO) | payer MEDICARE ==
[~2022-12-13] VITALS: Ht 154.9 cm; Wt 80.1 kg
[~2022-12-13 14:01] MED LIST changes: -ACETAMINOPHEN 325 MG TAB As Ordered ONE; -ACETAMINOPHEN TAB 650MG DOSE (2X325MG) PO PRN; -ENAL1TAB50 PO; -HYDR-3713 PO; -LEVO100T5 PO; -LIDOCAINE 1% MDV 20ML VIAL As Ordered ONE
[2022-12-13] MEDS ORDERED: MORPHINE 4 MG/ML 1ML VIAL IV ONE (14:50)
[2022-12-13 15:38] LABS: BASO # 0.1 10^3/uL (0.0-0.2); BASO % 0.6 % (0.0-1.0); EOS # 0.1 10^3/uL (0.0-0.5); EOS % 0.3 % (0.0-3.0); HEMATOCRIT 37.3 % (36.0-47.0); HEMOGLOBIN 11.7 g/dl (12.0-15.5); LYMPH # 2.8 10^3/uL (1.5-5.0); LYMPH % 17.5 % (24.0-44.0); MEAN CORPUSCULAR HEMOGLOBIN 29.6 pg (27.0-33.0); MEAN CORPUSCULAR HGB CONC 31.4 g/dl (32.0-36.5); MEAN CORPUSCULAR VOLUME 94.4 fl (80.0-96.0); MONO # 1.5 10^3/uL (0.0-0.8); MONO % 9.6 % (2.0-8.0); NEUTROPHILS # 11.2 10^3/uL (1.5-8.5); NEUTROPHILS % 71.2 % (36.0-66.0); PLATELET COUNT, AUTOMATED 358 10^3/uL (150-450); RED BLOOD COUNT 3.95 10^6/uL (4.00-5.40); WHITE BLOOD COUNT 15.8 10^3/uL (4.0-10.0)
[2022-12-13 15:48] LABS: INR 0.99; PROTHROMBIN TIME 13.3 SECONDS (12.5-14.5)
[2022-12-13 15:49] LABS: PARTIAL THROMBOPLASTIN TIME 21.1 SECONDS (24.8-34.2)
[2022-12-13] MEDS ORDERED: ISOVUE-370 76% 100ML VIAL As Ordered ONE (15:50)
[2022-12-13 16:01] LABS: ALBUMIN 3.5 G/DL (3.2-5.2); ALKALINE PHOSPHATASE 89 U/L (46-116); ALT/SGPT 35 U/L (7.0-40); AST/SGOT 194 U/L (<34); BILIRUBIN,DIRECT 0.1 MG/DL (<0.4); BILIRUBIN,TOTAL 0.3 MG/DL (0.3-1.2); BLOOD UREA NITROGEN 18 MG/DL (9-23); CARBON DIOXIDE LEVEL 29 MMOL/L (20-31); CHLORIDE LEVEL 100 MMOL/L (98-107); CREATININE FOR GFR 0.52 MG/DL (0.55-1.30); GLOMERULAR FILTRATION RATE > 60.0 (>45); GLUCOSE, FASTING 129 MG/DL (74-106); POTASSIUM SERUM 4.1 MMOL/L (3.5-5.1); SODIUM LEVEL 136 MMOL/L (136-145); TOTAL PROTEIN 6.9 G/DL (5.7-8.2)
[2022-12-13] MEDS ORDERED: HYDROMORPHONE HCL 0.5 MG/ 0.5 ML SYRINGE IV ONE (16:20)
[2022-12-13] MEDS ORDERED: HYDR-3713 PO (18:29)
[2022-12-13] MEDS ORDERED: HYDROMORPHONE HCL 0.5 MG/ 0.5 ML SYRINGE IV PRN (18:50)
[2022-12-13] MEDS ORDERED: DEXTROSE 50% 50ML SYRINGE IV PRN (19:40)
[2022-12-13] MEDS ORDERED: ONDANSETRON 4MG ORAL DISINTEGRATING TAB PO PRN (19:40)
[2022-12-13] MEDS ORDERED: GLUCOSE 4GM CHEW TABLET PO PRN (19:40)
[2022-12-13] MEDS ORDERED: GLUCAGON INJ 1MG VIAL SC PRN (19:40)
[2022-12-13] MEDS ORDERED: oxyCODONE 5MG TAB PO PRN ×2 (19:40)
[2022-12-13] MEDS ORDERED: ACETAMINOPHEN TAB 650MG DOSE (2X325MG) PO PRN (19:40)
[2022-12-13] MEDS ORDERED: MORPHINE 4 MG/ML 1ML VIAL IV PRN (19:45)
[2022-12-13 20:27] LABS: RSV AMPLIFICATION NEGATIVE (NEGATIVE)
[2022-12-13] MEDS ORDERED: ATORVASTATIN 20 MG TAB PO SCH (21:00)
[2022-12-13] MEDS ORDERED: INSULIN LISPRO (NovoLOG) PER UNIT SC SCH (21:00)
[2022-12-13] MEDS ORDERED: LEVO100T5 PO (21:06)
[2022-12-13] MEDS ORDERED: ENAL1TAB50 PO (21:06)
[2022-12-13] MEDS ORDERED: HOME MED LIST COMPLETE! XX SCH (21:10)
[2022-12-13 22:28] VITALS: BP 134/76
[2022-12-14 05:31] VITALS: BP 139/75
[2022-12-14] MEDS ORDERED: LEVOTHYROXINE 100MCG TABLET (0.1MG) PO SCH (06:00)
[2022-12-14 06:09] LABS: HEMATOCRIT 35.9 % (36.0-47.0); HEMOGLOBIN 11.7 g/dl (12.0-15.5); MEAN CORPUSCULAR HEMOGLOBIN 30.3 pg (27.0-33.0); MEAN CORPUSCULAR HGB CONC 32.6 g/dl (32.0-36.5); PLATELET COUNT, AUTOMATED 342 10^3/uL (150-450); RED BLOOD COUNT 3.86 10^6/uL (4.00-5.40); WHITE BLOOD COUNT 13.8 10^3/uL (4.0-10.0)
[2022-12-14 06:35] LABS: ALBUMIN 3.4 G/DL (3.2-5.2); ALKALINE PHOSPHATASE 86 U/L (46-116); ALT/SGPT 32 U/L (7.0-40); AST/SGOT 130 U/L (<34); BILIRUBIN,TOTAL 0.4 MG/DL (0.3-1.2); BLOOD UREA NITROGEN 14 MG/DL (9-23); CALCIUM LEVEL 10.7 MG/DL (8.3-10.6); CARBON DIOXIDE LEVEL 28 MMOL/L (20-31); CHLORIDE LEVEL 99 MMOL/L (98-107); CREATININE FOR GFR 0.37 MG/DL (0.55-1.30); GLOMERULAR FILTRATION RATE > 60.0 (>45); GLUCOSE, FASTING 129 MG/DL (74-106); MAGNESIUM LEVEL 1.7 MG/DL (1.8-2.4); POTASSIUM SERUM 4.3 MMOL/L (3.5-5.1); SODIUM LEVEL 134 MMOL/L (136-145); TOTAL PROTEIN 6.7 G/DL (5.7-8.2)
[2022-12-14] MEDS ORDERED: INSULIN LISPRO (NovoLOG) PER UNIT SC SCH (07:30)
[2022-12-14] MEDS ORDERED: TIOTROPIUM INHALER/CAPSULE (SPIRIVA) INH SCH (08:00)
[2022-12-14] MEDS ORDERED: ENALAPRIL MALEATE 10 MG TAB PO SCH (09:00)
[2022-12-14] MEDS ORDERED: ASPIRIN 81MG ENTERIC TABLET PO SCH (09:00)
[2022-12-14] MEDS ORDERED: ACET1TAB55 PO (10:17)
[2022-12-14] MEDS ORDERED: OXYC-517 PO (10:17)
[2022-12-14] MEDS ORDERED: MAGNESIUM OXIDE 400MG TAB (MAG-OX) PO ONE (10:25)
== END 2022-12-14 12:10 | disposition home or self-care (01) ==
LOC: M ED 14:01 → M ED INP 19:36 → M MSPAV 22:28
PROVIDERS: ADMIT Internal Medicine; ATTEND Internal Medicine
DX: R10.11 Right upper quadrant pain (principal); C22.0 Liver cell carcinoma; D72.829 Elevated white blood cell count, unspecified; I10 Essential (primary) hypertension; E11.9 Type 2 diabetes mellitus without complications; E78.5 Hyperlipidemia, unspecified; E03.9 Hypothyroidism, unspecified; J44.9 Chronic obstructive pulmonary disease, unspecified; Z91.040 Latex allergy status; G47.33 Obstructive sleep apnea (adult) (pediatric); Z79.82 Long term (current) use of aspirin; Z79.84 Long term (current) use of oral hypoglycemic drugs; Z79.899 Other long term (current) drug therapy; Z87.891 Personal history of nicotine dependence
CPT/HCPCS: 36415; 74177; 80047; 80048; 80053; 80076; 82140; 83735; 84145; 85025; 85027; 85610; 85730; 86850; 86900; 86901; 87631; 94640; 96374; 96375; 99284; G0378; J1170; J1815; Q9967

== ENCOUNTER → 2022-12-19 | Outpatient (CLI) | payer MEDICARE ==
[~2022-12-19] MED LIST changes: +ACET1TAB55 PO; +ENAL1TAB50 PO; +HYDR-3713 PO; +LEVO100T5 PO; +OXYC-517 PO
== END ==
LOC: M PLARAD 16:15
PROVIDERS: ATTEND Internal Medicine Medical Oncology
DX: D37.6 Neoplasm of uncertain behavior of liver, gallbladder and bile ducts (principal); R91.8 Other nonspecific abnormal finding of lung field
CPT/HCPCS: 78815; A9552

== ENCOUNTER → 2022-12-29 | Outpatient (CLI) | payer MEDICARE | LOC: M ONCR 13:01 | PROVIDERS: ATTEND General Practice | DX: C22.1 Intrahepatic bile duct carcinoma (principal); E03.9 Hypothyroidism, unspecified; E78.5 Hyperlipidemia, unspecified; E11.9 Type 2 diabetes mellitus without complications; G47.33 Obstructive sleep apnea (adult) (pediatric); I10 Essential (primary) hypertension; R91.8 Other nonspecific abnormal finding of lung field; Z79.82 Long term (current) use of aspirin; Z79.84 Long term (current) use of oral hypoglycemic drugs; Z79.890 Hormone replacement therapy; Z79.899 Other long term (current) drug therapy; Z80.0 Family history of malignant neoplasm of digestive organs; Z87.891 Personal history of nicotine dependence; Z91.040 Latex allergy status; Z99.89 Dependence on other enabling machines and devices ==

== ENCOUNTER → 2023-01-19 | Outpatient (CLI) | payer MEDICARE ==
[~2023-01-19] VITALS: Ht 156.2 cm; Wt 78.3 kg
[~2023-01-19] MED LIST changes: +ACET-897 PO; +ATOR1TAB21 PO; +DULC10SU2 PR; +LEXA5TAB13 PO; +SENN8.6T28 PO
[2023-01-19 08:45] VITALS: BP 153/69
== END ==
LOC: M PAL 08:35
PROVIDERS: ATTEND Nurse Practitioner Adult Health
DX: C22.1 Intrahepatic bile duct carcinoma (principal); R91.8 Other nonspecific abnormal finding of lung field; Z51.5 Encounter for palliative care; Z63.79 Other stressful life events affecting family and household; F32.A Depression, unspecified; F41.9 Anxiety disorder, unspecified; G89.3 Neoplasm related pain (acute) (chronic); Z79.891 Long term (current) use of opiate analgesic; K59.00 Constipation, unspecified; Z91.040 Latex allergy status; Z88.8 Allergy status to other drugs, medicaments and biological substances; G47.00 Insomnia, unspecified; E03.9 Hypothyroidism, unspecified; E78.5 Hyperlipidemia, unspecified; E11.9 Type 2 diabetes mellitus without complications; Z80.0 Family history of malignant neoplasm of digestive organs; Z87.891 Personal history of nicotine dependence; Z79.899 Other long term (current) drug therapy; Z79.890 Hormone replacement therapy; Z79.84 Long term (current) use of oral hypoglycemic drugs

== ENCOUNTER → 2023-02-15 | Outpatient (CLI) | payer MEDICARE ==
[~2023-02-15] MED LIST changes: +CEPH500C PO; +ONDA8TAB8 PO; +PROC10TA5 PO
== END ==
LOC: M RAD 14:27
PROVIDERS: ATTEND Specialist
DX: R22.1 Localized swelling, mass and lump, neck (principal)

== ENCOUNTER → 2023-02-16 | Outpatient (CLI) | payer MEDICARE | LOC: M RAD 10:28 | PROVIDERS: ATTEND Internal Medicine Medical Oncology | DX: C22.9 Malignant neoplasm of liver, not specified as primary or secondary (principal); M47.9 Spondylosis, unspecified; J98.11 Atelectasis; J84.10 Pulmonary fibrosis, unspecified; Z95.828 Presence of other vascular implants and grafts ==

== ENCOUNTER → 2023-02-28 | Outpatient (POV) | payer MEDICARE ==
[~2023-02-28] VITALS: Ht 154.9 cm; Wt 75.4 kg
[2023-02-28 10:55] VITALS: BP 152/71; O2SAT 97
== END ==
LOC: M IRPOV 10:27
PROVIDERS: ATTEND Radiology Diagnostic Radiology
DX: Z45.2 Encounter for adjustment and management of vascular access device (principal); Z88.8 Allergy status to other drugs, medicaments and biological substances; Z91.040 Latex allergy status

== ENCOUNTER → 2023-03-01 | Outpatient (CLI) | payer MEDICARE ==
[~2023-03-01] VITALS: Ht 154.9 cm; Wt 77.4 kg
[2023-03-01 10:23] VITALS: BP 115/63; O2SAT 98
== END ==
LOC: M PAL 10:12
PROVIDERS: ATTEND Nurse Practitioner Adult Health
DX: C22.1 Intrahepatic bile duct carcinoma (principal); Z51.5 Encounter for palliative care; F32.A Depression, unspecified; F41.9 Anxiety disorder, unspecified; G89.3 Neoplasm related pain (acute) (chronic); G47.33 Obstructive sleep apnea (adult) (pediatric); K59.00 Constipation, unspecified; Z88.8 Allergy status to other drugs, medicaments and biological substances; G47.00 Insomnia, unspecified; E03.9 Hypothyroidism, unspecified; E78.5 Hyperlipidemia, unspecified; E11.9 Type 2 diabetes mellitus without complications; Z79.891 Long term (current) use of opiate analgesic; Z80.0 Family history of malignant neoplasm of digestive organs; Z91.040 Latex allergy status; Z79.899 Other long term (current) drug therapy; Z66 Do not resuscitate; Z99.89 Dependence on other enabling machines and devices; Z63.79 Other stressful life events affecting family and household

== ENCOUNTER → 2023-04-12 | Outpatient (CLI) | payer MEDICARE ==
[~2023-04-12] MED LIST changes: +LIDO30CR18 TOP
== END ==
LOC: M PAL 08:03
PROVIDERS: ATTEND Nurse Practitioner Adult Health
DX: C22.1 Intrahepatic bile duct carcinoma (principal); R91.8 Other nonspecific abnormal finding of lung field; Z51.5 Encounter for palliative care; Z92.21 Personal history of antineoplastic chemotherapy; F32.A Depression, unspecified; F41.9 Anxiety disorder, unspecified; G89.3 Neoplasm related pain (acute) (chronic); R26.89 Other abnormalities of gait and mobility; R53.83 Other fatigue; E03.9 Hypothyroidism, unspecified; E78.5 Hyperlipidemia, unspecified; I10 Essential (primary) hypertension; E11.9 Type 2 diabetes mellitus without complications; G47.33 Obstructive sleep apnea (adult) (pediatric); Z66 Do not resuscitate; Z63.79 Other stressful life events affecting family and household; Z80.0 Family history of malignant neoplasm of digestive organs; Z87.891 Personal history of nicotine dependence; Z79.899 Other long term (current) drug therapy; Z79.890 Hormone replacement therapy; Z79.51 Long term (current) use of inhaled steroids; Z79.84 Long term (current) use of oral hypoglycemic drugs; Z91.040 Latex allergy status; Z88.8 Allergy status to other drugs, medicaments and biological substances

== ENCOUNTER → 2023-04-19 | Outpatient (CLI) | payer MEDICARE ==
[~2023-04-19] MED LIST changes: +GASTROGRAFIN SOLUTION 30ML As Ordered ONE; +ISOVUE-370 76% 100ML VIAL As Ordered ONE
== END ==
LOC: M RAD 13:04
PROVIDERS: ATTEND Internal Medicine Medical Oncology
DX: C22.9 Malignant neoplasm of liver, not specified as primary or secondary (principal); N28.1 Cyst of kidney, acquired
CPT/HCPCS: 71260; 74177; Q9963; Q9967

== ENCOUNTER 2023-06-05 17:29 | Emergency (ER) | payer MEDICARE ==
[~2023-06-05] VITALS: Ht 152.4 cm; Wt 84.5 kg
[~2023-06-05 17:29] MED LIST changes: -GASTROGRAFIN SOLUTION 30ML As Ordered ONE; -ISOVUE-370 76% 100ML VIAL As Ordered ONE; +MOME0.1C3 TOP
[2023-06-05 20:04] LABS: CK-MB VALUE MASS 1.1 NG/ML (<3.6)
[2023-06-05 20:05] LABS: BLOOD UREA NITROGEN 17 MG/DL (9-23); CALCIUM LEVEL 8.5 MG/DL (8.3-10.6); CARBON DIOXIDE LEVEL 26 MMOL/L (20-31); CHLORIDE LEVEL 107 MMOL/L (98-107); CPK CREATINE PHOSPHOKINASE 62 U/L (34-145); CREATININE FOR GFR 0.43 MG/DL (0.55-1.30); GLOMERULAR FILTRATION RATE > 60.0 (>45); GLUCOSE, FASTING 256 MG/DL (74-106); MB/CK RELATIVE INDEX 1.77 (< OR =4); POTASSIUM SERUM 4.7 MMOL/L (3.5-5.1); SODIUM LEVEL 139 MMOL/L (136-145)
[2023-06-05 20:07] LABS: THYROID STIMULATING HORMONE 0.945 uIU/ML (0.55-4.78)
[2023-06-05 22:00] LABS: HEMATOCRIT 26.9 % (36.0-47.0); HEMOGLOBIN 8.8 g/dl (12.0-15.5); LYMPH # 0.6 10^3/uL (1.5-5.0); LYMPH % 9.6 % (24.0-44.0); MEAN CORPUSCULAR HEMOGLOBIN 34.8 pg (27.0-33.0); MEAN CORPUSCULAR HGB CONC 32.7 g/dl (32.0-36.5); MEAN CORPUSCULAR VOLUME 106.3 fl (80.0-96.0); MONO # 0.3 10^3/uL (0.0-0.8); MONO % 4.3 % (2.0-8.0); NEUTROPHILS # 5.5 10^3/uL (1.5-8.5); NEUTROPHILS % 82.1 % (36.0-66.0); PLATELET COUNT, AUTOMATED 247 10^3/uL (150-450); RED BLOOD COUNT 2.53 10^6/uL (4.00-5.40); WHITE BLOOD COUNT 6.7 10^3/uL (4.0-10.0)
[2023-06-05] MEDS ORDERED: POLYSPORIN TOPICAL OINTMENT 15GM TOP ONE (22:15)
[2023-06-05 22:29] LABS: MB/CK RELATIVE INDEX 1.66 (< OR =4)
[2023-06-05 23:00] VITALS: BP 130/61
[2023-06-05 23:04] VITALS: TEMP 98; O2SAT 95
[2023-06-07] MEDS ORDERED: LEXA5TAB13 PO (15:47)
== END 2023-06-05 23:28 | disposition home or self-care (01) ==
LOC: M ED 17:29
DX: R07.9 Chest pain, unspecified (principal); B34.8 Other viral infections of unspecified site; I10 Essential (primary) hypertension; E78.5 Hyperlipidemia, unspecified; J44.9 Chronic obstructive pulmonary disease, unspecified; F32.A Depression, unspecified; E11.9 Type 2 diabetes mellitus without complications; Z91.040 Latex allergy status; Z88.8 Allergy status to other drugs, medicaments and biological substances; Z79.82 Long term (current) use of aspirin; Z79.02 Long term (current) use of antithrombotics/antiplatelets; Z79.810 Long term (current) use of selective estrogen receptor modulators (SERMs); Z79.899 Other long term (current) drug therapy

== ENCOUNTER 2023-06-08 13:38 | Inpatient (IN) | payer MEDICARE ==
[~2023-06-08] VITALS: Ht 154.9 cm; Wt 89.5 kg
[2023-06-08] MEDS ORDERED: ISOVUE-370 76% 100ML VIAL As Ordered ONE (14:57)
[2023-06-08 15:01] LABS: BASO % 0.2 % (0.0-1.0); EOS % 0.7 % (0.0-3.0); HEMATOCRIT 28.5 % (36.0-47.0); HEMOGLOBIN 9.2 g/dl (12.0-15.5); LYMPH # 1.4 10^3/uL (1.5-5.0); LYMPH % 23.3 % (24.0-44.0); MEAN CORPUSCULAR HEMOGLOBIN 33.8 pg (27.0-33.0); MEAN CORPUSCULAR HGB CONC 32.3 g/dl (32.0-36.5); MEAN CORPUSCULAR VOLUME 104.8 fl (80.0-96.0); MONO # 0.2 10^3/uL (0.0-0.8); MONO % 3.8 % (2.0-8.0); NEUTROPHILS # 4.3 10^3/uL (1.5-8.5); NEUTROPHILS % 71.5 % (36.0-66.0); PLATELET COUNT, AUTOMATED 407 10^3/uL (150-450); RED BLOOD COUNT 2.72 10^6/uL (4.00-5.40)
[2023-06-08] MEDS ORDERED: METOCLOPRAMIDE INJ 10MG/2ML VIAL IV ONE (15:10)
[2023-06-08 15:14] LABS: PROTHROMBIN TIME 12.9 SECONDS (12.5-14.5)
[2023-06-08 15:15] LABS: PARTIAL THROMBOPLASTIN TIME 23.6 SECONDS (24.8-34.2)
[2023-06-08 15:34] LABS: BLOOD UREA NITROGEN 19 MG/DL (9-23); CALCIUM LEVEL 9.1 MG/DL (8.3-10.6); CARBON DIOXIDE LEVEL 28 MMOL/L (20-31); CHLORIDE LEVEL 99 MMOL/L (98-107); CK-MB VALUE MASS < 1.0 NG/ML (<3.6); CPK CREATINE PHOSPHOKINASE 62 U/L (34-145); CREATININE FOR GFR 0.42 MG/DL (0.55-1.30); GLOMERULAR FILTRATION RATE > 60.0 (>45); GLUCOSE, FASTING 161 MG/DL (74-106); MB/CK RELATIVE INDEX 1.61 (< OR =4); POTASSIUM SERUM 5.1 MMOL/L (3.5-5.1); SODIUM LEVEL 133 MMOL/L (136-145)
[2023-06-08 15:41] LABS: RSV AMPLIFICATION NEGATIVE (NEGATIVE)
[2023-06-08] MEDS ORDERED: NS 1,000 ML IV ONE (17:00)
[2023-06-08] MEDS ORDERED: MED REC IN PROGRESS XX SCH (19:10)
[2023-06-08] MEDS ORDERED: oxyCODONE 5MG TAB PO PRN (19:20)
[2023-06-08] MEDS ORDERED: ONDANSETRON 4MG 2ML VIAL IV PRN (19:20)
[2023-06-08 20:22] VITALS: BP 149/67; TEMP 98.1; O2SAT 95
[2023-06-08] MEDS ORDERED: NS 500 ML IV ONE ×2 (20:45→23:00)
[2023-06-08] MEDS ORDERED: SIMVASTATIN 20 MG TAB PO SCH (21:00)
[2023-06-08] MEDS ORDERED: ENOXAPARIN 40MG/0.4ML SYRINGE (J1650 PER 10MG) SC ONE (22:00)
[2023-06-08] MEDS ORDERED: METOCLOPRAMIDE INJ 10MG/2ML VIAL IV PRN (22:00)
[2023-06-08] MEDS ORDERED: LOTE0.5S OU (22:11)
[2023-06-08] MEDS ORDERED: SYST1SOL4 OU (22:15)
[2023-06-08] MEDS ORDERED: SYST1SOL OU (22:15)
[2023-06-08] MEDS ORDERED: HOME MED LIST COMPLETE! XX SCH (22:20)
[2023-06-08 23:39] VITALS: BP 153/72; TEMP 97.7; O2SAT 91
[2023-06-09] VITALS (11 sets, daily range): BP systolic 128–175; BP diastolic 61–81; TEMP 96.6–97.6; O2SAT 94–97
[2023-06-09] MEDS: NS 1,000 ML IV SCH ×4 (00:29→16:17)
[2023-06-09] MEDS: ATORVASTATIN 20 MG TAB PO SCH ×2 (00:33→20:17)
[2023-06-09] MEDS: LEVOTHYROXINE 100MCG TABLET (0.1MG) PO SCH (06:14)
[2023-06-09] MEDS: TIOTROPIUM INHALER/CAPSULE (SPIRIVA) INH SCH (08:09)
[2023-06-09] MEDS: ESCITALOPRAM OXALATE 10 MG TAB (LEXAPRO) PO SCH (08:31)
[2023-06-09] MEDS: ASPIRIN ENTERIC 325MG TAB PO SCH (08:31)
[2023-06-09 08:56] LABS: CHOLESTEROL LEVEL 133 MG/DL (<200); CHOLESTEROL RISK RATIO 2.49 (<5); HDL CHOLESTEROL 53.4 MG/DL (>40); LDL CHOLESTEROL 43.4 MG/DL (<100); NON-HDL-C 79.6 MG/DL; TRIGLYCERIDES LEVEL 181 MG/DL (<150)
[2023-06-09] MEDS ORDERED: NS 1,000 ML IV ONE ×3 (10:25→20:00)
[2023-06-09 11:34] LABS: BASO % 0.3 % (0.0-1.0); EOS # 0.1 10^3/uL (0.0-0.5); EOS % 1.4 % (0.0-3.0); HEMATOCRIT 25.1 % (36.0-47.0); HEMOGLOBIN 8.1 g/dl (12.0-15.5); LYMPH # 1.2 10^3/uL (1.5-5.0); LYMPH % 31.7 % (24.0-44.0); MEAN CORPUSCULAR HEMOGLOBIN 34.5 pg (27.0-33.0); MEAN CORPUSCULAR HGB CONC 32.3 g/dl (32.0-36.5); MEAN CORPUSCULAR VOLUME 106.8 fl (80.0-96.0); MONO # 0.2 10^3/uL (0.0-0.8); MONO % 4.1 % (2.0-8.0); NEUTROPHILS # 2.3 10^3/uL (1.5-8.5); NEUTROPHILS % 62.2 % (36.0-66.0); PLATELET COUNT, AUTOMATED 404 10^3/uL (150-450); RED BLOOD COUNT 2.35 10^6/uL (4.00-5.40); WHITE BLOOD COUNT 3.7 10^3/uL (4.0-10.0)
[2023-06-09 11:44] LABS: BLOOD UREA NITROGEN 12 MG/DL (9-23); CALCIUM LEVEL 8.3 MG/DL (8.3-10.6); CARBON DIOXIDE LEVEL 27 MMOL/L (20-31); CHLORIDE LEVEL 105 MMOL/L (98-107); CREATININE FOR GFR 0.42 MG/DL (0.55-1.30); GLOMERULAR FILTRATION RATE > 60.0 (>45); GLUCOSE, FASTING 130 MG/DL (74-106); POTASSIUM SERUM 4.1 MMOL/L (3.5-5.1); SODIUM LEVEL 138 MMOL/L (136-145)
[2023-06-09] MEDS ORDERED: NS 1,000 ML IV SCH (12:20)
[2023-06-09] MEDS ORDERED: LIDOCAINE 4% TOPICAL SOLN 50 ML BTL TOP ONE (13:00)
[2023-06-09] MEDS: ENOXAPARIN 40MG/0.4ML SYRINGE (J1650 PER 10MG) SC SCH (16:22)
[2023-06-09] MEDS ORDERED: SODIUM CHLORIDE 0.9% INJ 10 ML SYR IV PRN (19:45)
[2023-06-09 19:47] LABS: BLOOD UREA NITROGEN 18 MG/DL (9-23); CALCIUM LEVEL 7.8 MG/DL (8.3-10.6); CARBON DIOXIDE LEVEL 27 MMOL/L (20-31); CHLORIDE LEVEL 107 MMOL/L (98-107); CREATININE FOR GFR 0.42 MG/DL (0.55-1.30); GLOMERULAR FILTRATION RATE > 60.0 (>45); GLUCOSE, FASTING 147 MG/DL (74-106); POTASSIUM SERUM 3.7 MMOL/L (3.5-5.1); SODIUM LEVEL 139 MMOL/L (136-145)
[2023-06-10] MEDS: NS 1,000 ML IV SCH (00:33)
[2023-06-10 04:19] VITALS: BP 145/67; TEMP 97; O2SAT 98
[2023-06-10] MEDS: LEVOTHYROXINE 100MCG TABLET (0.1MG) PO SCH (06:16)
[2023-06-10 07:27] LABS: HEMOGLOBIN 7.5 g/dl (12.0-15.5); MEAN CORPUSCULAR HEMOGLOBIN 34.7 pg (27.0-33.0); MEAN CORPUSCULAR HGB CONC 32.6 g/dl (32.0-36.5); MEAN CORPUSCULAR VOLUME 106.5 fl (80.0-96.0); PLATELET COUNT, AUTOMATED 436 10^3/uL (150-450); RED BLOOD COUNT 2.16 10^6/uL (4.00-5.40); WHITE BLOOD COUNT 3.7 10^3/uL (4.0-10.0)
[2023-06-10 07:33] VITALS: BP 141/67; TEMP 97.3; O2SAT 95
[2023-06-10 07:52] LABS: BLOOD UREA NITROGEN 16 MG/DL (9-23); CALCIUM LEVEL 7.8 MG/DL (8.3-10.6); CARBON DIOXIDE LEVEL 23 MMOL/L (20-31); CHLORIDE LEVEL 108 MMOL/L (98-107); CREATININE FOR GFR 0.36 MG/DL (0.55-1.30); GLOMERULAR FILTRATION RATE > 60.0 (>45); GLUCOSE, FASTING 178 MG/DL (74-106); POTASSIUM SERUM 4.3 MMOL/L (3.5-5.1); SODIUM LEVEL 138 MMOL/L (136-145)
[2023-06-10 08:07] LABS: ATYPICAL LYMPH 3 % (0-5); EOSINOPHILS 4 % (0-3); LYMPHOCYTES 29 % (16-44); MONOCYTES 2 % (0-5); NEUTROPHILS 62 % (28-66); PLATELET ESTIMATE INCREASED (NORMAL)
[2023-06-10 08:08] LABS: MICROCYTOSIS 1+; POLYCHROMASIA 1+; TEAR DROP CELLS 1+
[2023-06-10] MEDS: ASPIRIN ENTERIC 325MG TAB PO SCH (08:41)
[2023-06-10] MEDS: ESCITALOPRAM OXALATE 10 MG TAB (LEXAPRO) PO SCH (08:41)
[2023-06-10] MEDS: ENOXAPARIN 40MG/0.4ML SYRINGE (J1650 PER 10MG) SC SCH (08:41)
[2023-06-10] MEDS: SODIUM CHLORIDE 0.9% INJ 10 ML SYR IV SCH (08:43)
[2023-06-10] MEDS ORDERED: GLUCAGON INJ 1MG VIAL SC PRN (09:05)
[2023-06-10] MEDS ORDERED: GLUCOSE 4GM CHEW TABLET PO PRN (09:05)
[2023-06-10] MEDS ORDERED: DEXTROSE 50% 50ML SYRINGE IV PRN (09:05)
[2023-06-10] MEDS: TIOTROPIUM INHALER/CAPSULE (SPIRIVA) INH SCH (10:25)
[2023-06-10 11:50] VITALS: BP 162/72; TEMP 97.1; O2SAT 94
[2023-06-10] MEDS: INSULIN LISPRO (NovoLOG) PER UNIT SC SCH ×3 (13:09→20:50)
[2023-06-10 16:30] VITALS: BP 132/86; TEMP 97.9; O2SAT 96
[2023-06-10 19:49] VITALS: BP 145/68; TEMP 97.6; O2SAT 97
[2023-06-10] MEDS: ATORVASTATIN 20 MG TAB PO SCH (20:33)
[2023-06-11] VITALS (8 sets, daily range): BP systolic 130–164; BP diastolic 72–84; TEMP 97–97.7; O2SAT 97–98
[2023-06-11 05:04] LABS: HEMATOCRIT 22.7 % (36.0-47.0); HEMOGLOBIN 7.5 g/dl (12.0-15.5); MEAN CORPUSCULAR VOLUME 106.1 fl (80.0-96.0); PLATELET COUNT, AUTOMATED 425 10^3/uL (150-450); RED BLOOD COUNT 2.14 10^6/uL (4.00-5.40); WHITE BLOOD COUNT 3.5 10^3/uL (4.0-10.0)
[2023-06-11 05:32] LABS: BLOOD UREA NITROGEN 12 MG/DL (9-23); CALCIUM LEVEL 8.5 MG/DL (8.3-10.6); CARBON DIOXIDE LEVEL 25 MMOL/L (20-31); CHLORIDE LEVEL 109 MMOL/L (98-107); CREATININE FOR GFR 0.38 MG/DL (0.55-1.30); GLOMERULAR FILTRATION RATE > 60.0 (>45); GLUCOSE, FASTING 149 MG/DL (74-106); POTASSIUM SERUM 4.7 MMOL/L (3.5-5.1); SODIUM LEVEL 140 MMOL/L (136-145)
[2023-06-11 05:49] LABS: ANISOCYTOSIS 2+; BASOPHILS 2 % (0-1); EOSINOPHILS 1 % (0-3); LYMPHOCYTES 47 % (16-44); MICROCYTOSIS 1+; MONOCYTES 2 % (0-5); NEUTROPHILS 48 % (28-66); PLATELET ESTIMATE NORMAL (NORMAL)
[2023-06-11 05:50] LABS: POIKILOCYTOSIS 1+; TEAR DROP CELLS 1+
[2023-06-11 05:51] LABS: HYPOCHROMASIA 1+
[2023-06-11] MEDS: LEVOTHYROXINE 100MCG TABLET (0.1MG) PO SCH (05:54)
[2023-06-11] MEDS: TIOTROPIUM INHALER/CAPSULE (SPIRIVA) INH SCH (08:15)
[2023-06-11] MEDS: ASPIRIN ENTERIC 325MG TAB PO SCH (08:27)
[2023-06-11] MEDS: ESCITALOPRAM OXALATE 10 MG TAB (LEXAPRO) PO SCH (08:27)
[2023-06-11] MEDS: ENOXAPARIN 40MG/0.4ML SYRINGE (J1650 PER 10MG) SC SCH (08:28)
[2023-06-11] MEDS: INSULIN LISPRO (NovoLOG) PER UNIT SC SCH ×4 (08:28→20:19)
[2023-06-11] MEDS: SODIUM CHLORIDE 0.9% INJ 10 ML SYR IV SCH (08:29)
[2023-06-11 13:32] LABS: HEMATOCRIT 28.6 % (36.0-47.0); HEMOGLOBIN 9.2 g/dl (12.0-15.5)
[2023-06-11] MEDS: ATORVASTATIN 20 MG TAB PO SCH (20:22)
[2023-06-12 05:39] VITALS: BP 167/75; TEMP 98; O2SAT 96
[2023-06-12] MEDS: LEVOTHYROXINE 100MCG TABLET (0.1MG) PO SCH (05:39)
[2023-06-12 07:24] VITALS: BP 142/72; TEMP 96.7; O2SAT 97
[2023-06-12] MEDS: TIOTROPIUM INHALER/CAPSULE (SPIRIVA) INH SCH (08:11)
[2023-06-12] MEDS: ASPIRIN ENTERIC 325MG TAB PO SCH (08:21)
[2023-06-12] MEDS: ESCITALOPRAM OXALATE 10 MG TAB (LEXAPRO) PO SCH (08:22)
[2023-06-12] MEDS: ENOXAPARIN 40MG/0.4ML SYRINGE (J1650 PER 10MG) SC SCH (08:22)
[2023-06-12] MEDS: SODIUM CHLORIDE 0.9% INJ 10 ML SYR IV SCH (08:23)
[2023-06-12] MEDS: INSULIN LISPRO (NovoLOG) PER UNIT SC SCH ×2 (08:23→12:20)
[2023-06-12 08:37] LABS: HEMATOCRIT 30.5 % (36.0-47.0); HEMOGLOBIN 9.8 g/dl (12.0-15.5); MEAN CORPUSCULAR HEMOGLOBIN 33.4 pg (27.0-33.0); MEAN CORPUSCULAR HGB CONC 32.1 g/dl (32.0-36.5); MEAN CORPUSCULAR VOLUME 104.1 fl (80.0-96.0); PLATELET COUNT, AUTOMATED 474 10^3/uL (150-450); RED BLOOD COUNT 2.93 10^6/uL (4.00-5.40); WHITE BLOOD COUNT 2.5 10^3/uL (4.0-10.0)
[2023-06-12] MEDS ORDERED: GLIMEPIRIDE 2 MG TAB PO SCH (09:00)
[2023-06-12] MEDS ORDERED: ENALAPRIL MALEATE 10 MG TAB PO SCH (09:00)
[2023-06-12] MEDS ORDERED: SITagliptin 50 MG TAB (JANUVIA) PO SCH (09:00)
[2023-06-12] MEDS ORDERED: SENNA 8.6 MG TAB (SENOKOT) PO SCH (09:00)
[2023-06-12] MEDS ORDERED: MULTIVITAMINS/MINERALS THERAP 1 TAB PO SCH (09:00)
[2023-06-12 09:09] LABS: BLOOD UREA NITROGEN 11 MG/DL (9-23); CALCIUM LEVEL 9.3 MG/DL (8.3-10.6); CARBON DIOXIDE LEVEL 28 MMOL/L (20-31); CHLORIDE LEVEL 105 MMOL/L (98-107); CREATININE FOR GFR 0.42 MG/DL (0.55-1.30); GLOMERULAR FILTRATION RATE > 60.0 (>45); GLUCOSE, FASTING 206 MG/DL (74-106); POTASSIUM SERUM 4.7 MMOL/L (3.5-5.1); SODIUM LEVEL 140 MMOL/L (136-145)
[2023-06-12 09:17] LABS: ATYPICAL LYMPH 15 % (0-5); EOSINOPHILS 1 % (0-3); LYMPHOCYTES 45 % (16-44); MONOCYTES 9 % (0-5); NEUTROPHILS 30 % (28-66); PLATELET ESTIMATE INCREASED (NORMAL)
[2023-06-12 09:18] LABS: POLYCHROMASIA 2+
[2023-06-12] MEDS ORDERED: SENOKOT S TAB PO SCH (10:50)
[2023-06-12] MEDS ORDERED: ACETAMINOPHEN 500 MG TAB PO PRN (10:55)
[2023-06-12] MEDS ORDERED: EMLA CREAM 5GM TUBE (LIDOCAINE/PRILOCAINE) TOP SCH (10:55)
[2023-06-12] MEDS ORDERED: SELF1KIT AD (10:58)
[2023-06-12] MEDS ORDERED: ASPI32ECTA PO (11:00)
[2023-06-12] MEDS ORDERED: ATOR80TA59 PO (11:00)
[2023-06-12 13:00] VITALS: BP 156/72
== END 2023-06-12 13:29 | disposition home or self-care (01) | DRG 65 ==
LOC: M ED 13:38 → M ED INP 16:52 → M PCU 20:12
PROVIDERS: ADMIT General Practice; ATTEND General Practice
PROC: 30233N1 Transfusion of Nonautologous Red Blood Cells into Peripheral Vein, Percutaneous Approach (ICD-10-PCS; principal; 2023-06-11)
PROC: B246ZZZ Ultrasonography of Right and Left Heart (ICD-10-PCS; 2023-06-12)
DX: I63.9 Cerebral infarction, unspecified (principal); C22.1 Intrahepatic bile duct carcinoma; C78.00 Secondary malignant neoplasm of unspecified lung; Z66 Do not resuscitate; G47.33 Obstructive sleep apnea (adult) (pediatric); E03.9 Hypothyroidism, unspecified; E78.5 Hyperlipidemia, unspecified; I10 Essential (primary) hypertension; G43.909 Migraine, unspecified, not intractable, without status migrainosus; E11.9 Type 2 diabetes mellitus without complications; D64.9 Anemia, unspecified; R09.1 Pleurisy; Z87.891 Personal history of nicotine dependence; Z79.82 Long term (current) use of aspirin; Z79.890 Hormone replacement therapy; Z79.899 Other long term (current) drug therapy; Z79.84 Long term (current) use of oral hypoglycemic drugs; Z91.040 Latex allergy status; Z88.8 Allergy status to other drugs, medicaments and biological substances; Z20.822 Contact with and (suspected) exposure to COVID-19; E66.9 Obesity, unspecified; Z68.36 Body mass index [BMI] 36.0-36.9, adult

== ENCOUNTER → 2023-07-04 | Outpatient (CLI) | payer MEDICARE ==
[~2023-07-04] VITALS: Ht 152.4 cm; Wt 86.1 kg
[~2023-07-04] MED LIST changes: +ASPI32ECTA PO; +ATOR80TA59 PO; +LOTE0.5S OU; +SELF1KIT AD; +SYST1SOL OU; +SYST1SOL4 OU
[2023-07-04 10:07] VITALS: BP 172/81; O2SAT 96
== END ==
LOC: M PAL 09:57
PROVIDERS: ATTEND Nurse Practitioner Adult Health
DX: C22.1 Intrahepatic bile duct carcinoma (principal); Z51.5 Encounter for palliative care; H54.7 Unspecified visual loss; F41.9 Anxiety disorder, unspecified; R63.0 Anorexia; G89.3 Neoplasm related pain (acute) (chronic); Z66 Do not resuscitate; Z80.0 Family history of malignant neoplasm of digestive organs; Z79.84 Long term (current) use of oral hypoglycemic drugs; Z79.890 Hormone replacement therapy; Z79.899 Other long term (current) drug therapy; Z86.73 Personal history of transient ischemic attack (TIA), and cerebral infarction without residual deficits; Z87.891 Personal history of nicotine dependence; Z88.0 Allergy status to penicillin; Z88.8 Allergy status to other drugs, medicaments and biological substances; Z91.040 Latex allergy status; Z99.89 Dependence on other enabling machines and devices

== ENCOUNTER → 2023-07-07 | Outpatient (CLI) | payer MEDICARE ==
[~2023-07-07] MED LIST changes: +GASTROGRAFIN SOLUTION 30ML ONE; +ISOVUE-370 76% 100ML VIAL ONE; +MAGN400T2 PO
== END ==
LOC: M PLAIMG 11:03
PROVIDERS: ATTEND Internal Medicine Medical Oncology
DX: C22.1 Intrahepatic bile duct carcinoma (principal); N28.1 Cyst of kidney, acquired; N20.0 Calculus of kidney; K57.90 Diverticulosis of intestine, part unspecified, without perforation or abscess without bleeding; M47.816 Spondylosis without myelopathy or radiculopathy, lumbar region
CPT/HCPCS: 71260; 74177; Q9963; Q9967

== ENCOUNTER 2023-08-07 21:36 | Emergency (ER) | payer MEDICARE ==
[~2023-08-07] VITALS: Ht 152.4 cm; Wt 86.4 kg
[~2023-08-07 21:36] MED LIST changes: +ASPI81TA26 PO; +CLOP75TA99 PO; -GASTROGRAFIN SOLUTION 30ML ONE; -ISOVUE-370 76% 100ML VIAL ONE
[2023-08-07 23:26] LABS: HEMATOCRIT 26.8 % (36.0-47.0); HEMOGLOBIN 8.8 g/dl (12.0-15.5); MEAN CORPUSCULAR HEMOGLOBIN 35.1 pg (27.0-33.0); MEAN CORPUSCULAR HGB CONC 32.8 g/dl (32.0-36.5); MEAN CORPUSCULAR VOLUME 106.8 fl (80.0-96.0); PLATELET COUNT, AUTOMATED 371 10^3/uL (150-450); RED BLOOD COUNT 2.51 10^6/uL (4.00-5.40); WHITE BLOOD COUNT 8.3 10^3/uL (4.0-10.0)
[2023-08-07 23:47] LABS: LIPASE 40 U/L (12-53)
[2023-08-07 23:48] LABS: CK-MB VALUE MASS < 1.0 NG/ML (<3.6)
[2023-08-07 23:49] LABS: ALBUMIN 3.5 G/DL (3.2-5.2); ALKALINE PHOSPHATASE 78 U/L (46-116); ALT/SGPT 19 U/L (7.0-40); AST/SGOT 23 U/L (<34); BILIRUBIN,DIRECT < 0.1 MG/DL (<0.4); BILIRUBIN,TOTAL 0.2 MG/DL (0.3-1.2); CPK CREATINE PHOSPHOKINASE 62 U/L (34-145); MB/CK RELATIVE INDEX 1.61 (< OR =4); TOTAL PROTEIN 6.7 G/DL (5.7-8.2)
[2023-08-07 23:53] LABS: ANISOCYTOSIS 2+; ATYPICAL LYMPH 1 % (0-5); EOSINOPHILS 1 % (0-3); LYMPHOCYTES 34 % (16-44); MONOCYTES 10 % (0-5); NEUTROPHILS 47 % (28-66); PLATELET ESTIMATE NORMAL (NORMAL); POLYCHROMASIA 1+
[2023-08-08 01:07] LABS: CPK CREATINE PHOSPHOKINASE 65 U/L (34-145)
[2023-08-08 01:12] LABS: BLOOD UREA NITROGEN 28 MG/DL (9-23); CALCIUM LEVEL 9.3 MG/DL (8.3-10.6); CARBON DIOXIDE LEVEL 28 MMOL/L (20-31); CHLORIDE LEVEL 100 MMOL/L (98-107); CREATININE FOR GFR 0.47 MG/DL (0.55-1.30); GLOMERULAR FILTRATION RATE > 60.0 (>45); GLUCOSE, FASTING 198 MG/DL (74-106); MB/CK RELATIVE INDEX 1.53 (< OR =4); POTASSIUM SERUM 4.5 MMOL/L (3.5-5.1); SODIUM LEVEL 137 MMOL/L (136-145)
[2023-08-08] MEDS ORDERED: NS 1,000 ML IV ONE (01:35)
[2023-08-08] MEDS ORDERED: MORPHINE 4 MG/ML 1ML VIAL IV PRN (01:40)
[2023-08-08] MEDS ORDERED: ONDANSETRON 4MG 2ML VIAL IV ONE (01:40)
[2023-08-08] MEDS ORDERED: ISOVUE-370 76% 100ML VIAL As Ordered ONE (01:48)
[2023-08-08 05:15] VITALS: BP 137/65; TEMP 98.7; O2SAT 93
== END 2023-08-08 06:01 | disposition home or self-care (01) ==
LOC: M ED 21:36 → EDBD 21:36 → M ED 08-08 06:01
DX: R07.9 Chest pain, unspecified (principal); R10.9 Unspecified abdominal pain; E11.9 Type 2 diabetes mellitus without complications; I10 Essential (primary) hypertension; E78.5 Hyperlipidemia, unspecified; Z79.84 Long term (current) use of oral hypoglycemic drugs; Z91.040 Latex allergy status; Z88.8 Allergy status to other drugs, medicaments and biological substances; Z79.82 Long term (current) use of aspirin; Z79.02 Long term (current) use of antithrombotics/antiplatelets; Z79.83 Long term (current) use of bisphosphonates; Z79.810 Long term (current) use of selective estrogen receptor modulators (SERMs); Z79.899 Other long term (current) drug therapy
CPT/HCPCS: 71045; 71275; 74177; 80048; 80076; 82550; 82553; 83605; 83690; 84484; 85025; 87040; 87486; 87581; 87633; 87798; 93005; 93041; 96361; 96374; 96375; 99285; J2405; Q9967

== ENCOUNTER → 2023-08-17 | Outpatient (CLI) | payer MEDICARE ==
[~2023-08-17] VITALS: Ht 152.4 cm; Wt 89.4 kg
[~2023-08-17] MED LIST changes: +CLAR10CA3 PO
[2023-08-17 13:10] VITALS: BP 167/85; O2SAT 97
== END ==
LOC: M PAL 12:52
PROVIDERS: ATTEND Nurse Practitioner Adult Health
DX: C22.1 Intrahepatic bile duct carcinoma (principal); Z51.5 Encounter for palliative care; H54.7 Unspecified visual loss; F32.A Depression, unspecified; F41.9 Anxiety disorder, unspecified; R63.0 Anorexia; G89.3 Neoplasm related pain (acute) (chronic); Z66 Do not resuscitate; Z79.02 Long term (current) use of antithrombotics/antiplatelets; Z79.82 Long term (current) use of aspirin; Z79.84 Long term (current) use of oral hypoglycemic drugs; Z79.890 Hormone replacement therapy; Z79.891 Long term (current) use of opiate analgesic; Z79.899 Other long term (current) drug therapy; Z80.0 Family history of malignant neoplasm of digestive organs; Z86.73 Personal history of transient ischemic attack (TIA), and cerebral infarction without residual deficits; Z87.891 Personal history of nicotine dependence; Z88.8 Allergy status to other drugs, medicaments and biological substances; Z91.040 Latex allergy status; Z99.89 Dependence on other enabling machines and devices

== ENCOUNTER → 2023-10-19 | Outpatient (CLI) | payer MEDICARE ==
[~2023-10-19] VITALS: Ht 154.9 cm; Wt 88.6 kg
[~2023-10-19] MED LIST changes: +THERTAB52 PO
[2023-10-19 14:00] VITALS: BP 180/83; O2SAT 95
== END ==
LOC: M PAL 13:33
PROVIDERS: ATTEND Nurse Practitioner Adult Health
DX: C22.1 Intrahepatic bile duct carcinoma (principal); Z51.5 Encounter for palliative care; F32.A Depression, unspecified; F41.9 Anxiety disorder, unspecified; R63.0 Anorexia; G89.3 Neoplasm related pain (acute) (chronic); Z66 Do not resuscitate; Z79.02 Long term (current) use of antithrombotics/antiplatelets; Z79.620 Long term (current) use of immunosuppressive biologic; Z79.82 Long term (current) use of aspirin; Z79.84 Long term (current) use of oral hypoglycemic drugs; Z79.890 Hormone replacement therapy; Z79.891 Long term (current) use of opiate analgesic; Z79.899 Other long term (current) drug therapy; Z80.0 Family history of malignant neoplasm of digestive organs; Z86.73 Personal history of transient ischemic attack (TIA), and cerebral infarction without residual deficits; Z87.891 Personal history of nicotine dependence; Z88.8 Allergy status to other drugs, medicaments and biological substances; Z91.040 Latex allergy status; Z99.89 Dependence on other enabling machines and devices

== ENCOUNTER → 2023-10-23 | Outpatient (CLI) | payer MEDICARE ==
[~2023-10-23] MED LIST changes: +GASTROGRAFIN SOLUTION 30ML As Ordered ONE; +ISOVUE-370 76% 100ML VIAL As Ordered ONE
== END ==
LOC: M RAD 14:21
PROVIDERS: ATTEND Nurse Practitioner
DX: C22.1 Intrahepatic bile duct carcinoma (principal)
CPT/HCPCS: 71260; 74177; Q9963; Q9967

== ENCOUNTER → 2023-11-16 | Outpatient (CLI) | payer MEDICARE ==
[~2023-11-16] VITALS: Ht 154.9 cm; Wt 87.0 kg
[~2023-11-16] MED LIST changes: -GASTROGRAFIN SOLUTION 30ML As Ordered ONE; -ISOVUE-370 76% 100ML VIAL As Ordered ONE
[2023-11-16 14:35] VITALS: BP 156/81; O2SAT 95
== END ==
LOC: M PAL 14:26
PROVIDERS: ATTEND Nurse Practitioner Adult Health
DX: G89.3 Neoplasm related pain (acute) (chronic) (principal); C22.1 Intrahepatic bile duct carcinoma; Z51.5 Encounter for palliative care; F41.9 Anxiety disorder, unspecified; Z66 Do not resuscitate; Z79.02 Long term (current) use of antithrombotics/antiplatelets; Z79.620 Long term (current) use of immunosuppressive biologic; Z79.82 Long term (current) use of aspirin; Z79.84 Long term (current) use of oral hypoglycemic drugs; Z79.890 Hormone replacement therapy; Z79.891 Long term (current) use of opiate analgesic; Z79.899 Other long term (current) drug therapy; Z80.0 Family history of malignant neoplasm of digestive organs; Z86.73 Personal history of transient ischemic attack (TIA), and cerebral infarction without residual deficits; Z87.891 Personal history of nicotine dependence; Z88.8 Allergy status to other drugs, medicaments and biological substances; Z91.040 Latex allergy status; Z99.89 Dependence on other enabling machines and devices

== ENCOUNTER → 2023-12-27 | Outpatient (CLI) | payer MEDICARE ==
[~2023-12-27] VITALS: Ht 154.9 cm; Wt 86.4 kg
[~2023-12-27] MED LIST changes: +MAGICMW SSP; +SYST1SOL OP
[2023-12-27 11:35] VITALS: BP 152/74; O2SAT 97
== END ==
LOC: M PAL 11:27
PROVIDERS: ATTEND Nurse Practitioner Adult Health
DX: G89.3 Neoplasm related pain (acute) (chronic) (principal); C22.1 Intrahepatic bile duct carcinoma; C78.00 Secondary malignant neoplasm of unspecified lung; Z51.5 Encounter for palliative care; F41.9 Anxiety disorder, unspecified; F32.A Depression, unspecified; M25.531 Pain in right wrist; M79.622 Pain in left upper arm; Z66 Do not resuscitate; Z79.02 Long term (current) use of antithrombotics/antiplatelets; Z79.620 Long term (current) use of immunosuppressive biologic; Z79.82 Long term (current) use of aspirin; Z79.84 Long term (current) use of oral hypoglycemic drugs; Z79.890 Hormone replacement therapy; Z79.891 Long term (current) use of opiate analgesic; Z79.899 Other long term (current) drug therapy; Z80.0 Family history of malignant neoplasm of digestive organs; Z86.73 Personal history of transient ischemic attack (TIA), and cerebral infarction without residual deficits; Z87.891 Personal history of nicotine dependence; Z88.8 Allergy status to other drugs, medicaments and biological substances; Z91.040 Latex allergy status; Z99.89 Dependence on other enabling machines and devices

== ENCOUNTER 2024-01-18 09:11 | Inpatient (IN) | payer OTHER, MEDICARE ==
[~2024-01-18] VITALS: Ht 154.9 cm; Wt 84.3 kg
[2024-01-18] MEDS ORDERED: SODIUM CHLORIDE 0.9% INJ 10 ML SYR IV PRN (09:35)
[2024-01-18 10:05] LABS: BASO # 0.1 10^3/uL (0.0-0.2); BASO % 0.3 % (0.0-1.0); HEMATOCRIT 34.1 % (36.0-47.0); HEMOGLOBIN 11.2 g/dl (12.0-15.5); LYMPH # 1.9 10^3/uL (1.5-5.0); LYMPH % 8.8 % (24.0-44.0); MEAN CORPUSCULAR HEMOGLOBIN 33.7 pg (27.0-33.0); MEAN CORPUSCULAR HGB CONC 32.8 g/dl (32.0-36.5); MEAN CORPUSCULAR VOLUME 102.7 fl (80.0-96.0); MONO # 0.4 10^3/uL (0.0-0.8); MONO % 1.8 % (2.0-8.0); NEUTROPHILS # 18.8 10^3/uL (1.5-8.5); NEUTROPHILS % 88.2 % (36.0-66.0); PLATELET COUNT, AUTOMATED 155 10^3/uL (150-450); RED BLOOD COUNT 3.32 10^6/uL (4.00-5.40); WHITE BLOOD COUNT 21.4 10^3/uL (4.0-10.0)
[2024-01-18 10:20] LABS: INR 1.14; PARTIAL THROMBOPLASTIN TIME 23.4 SECONDS (24.8-34.2); PROTHROMBIN TIME 14.3 SECONDS (12.5-14.5)
[2024-01-18 10:32] LABS: LIPASE 43 U/L (12-53)
[2024-01-18 10:34] LABS: AMYLASE 51 U/L (30-118); CK-MB VALUE MASS 4.7 NG/ML (<3.6); CPK CREATINE PHOSPHOKINASE 113 U/L (34-145); MB/CK RELATIVE INDEX 4.15 (< OR =4)
[2024-01-18 10:35] LABS: ALBUMIN 3.8 G/DL (3.2-5.2); ALKALINE PHOSPHATASE 260 U/L (46-116); ALT/SGPT 44 U/L (7.0-40); AST/SGOT 70 U/L (<34); BILIRUBIN,DIRECT 0.1 MG/DL (<0.4); BILIRUBIN,TOTAL 0.3 MG/DL (0.3-1.2); BLOOD UREA NITROGEN 27 MG/DL (9-23); CALCIUM LEVEL 10.7 MG/DL (8.3-10.6); CARBON DIOXIDE LEVEL 28 MMOL/L (20-31); CHLORIDE LEVEL 102 MMOL/L (98-107); CREATININE FOR GFR 0.57 MG/DL (0.55-1.30); GLOMERULAR FILTRATION RATE > 60.0 (>45); GLUCOSE, FASTING 180 MG/DL (74-106); POTASSIUM SERUM 4.2 MMOL/L (3.5-5.1); SODIUM LEVEL 137 MMOL/L (136-145); TOTAL PROTEIN 6.8 G/DL (5.7-8.2)
[2024-01-18] MEDS: NS 1,000 ML IV ONE (10:46)
[2024-01-18] MEDS: HYDROMORPHONE HCL 0.5 MG/ 0.5 ML SYRINGE IV ONE ×2 (10:47→16:43)
[2024-01-18] MEDS ORDERED: ISOVUE-370 76% 100ML VIAL As Ordered ONE (10:48)
[2024-01-18 12:25] LABS: CK-MB VALUE MASS 4.9 NG/ML (<3.6)
[2024-01-18 12:27] LABS: MB/CK RELATIVE INDEX 3.12 (< OR =4)
[2024-01-18] MEDS: KETOROLAC 30 MG/ML 1ML VIAL IV ONE (16:40)
[2024-01-18] MEDS: CYCLOBENZAPRINE 5MG TABLET PO ONE (16:43)
[2024-01-18] MEDS ORDERED: KETOROLAC 30 MG/ML 1ML VIAL As Ordered ONE (17:10)
[2024-01-18] MEDS ORDERED: ATROPINE SULFATE 1% OPHTH SOLN 2ML BTL SL PRN (17:20)
[2024-01-18] MEDS ORDERED: SCOPOLAMINE 1MG TRANSDERMAL PATCH TOP PRN (17:20)
[2024-01-18] MEDS ORDERED: ONDANSETRON 4MG ORAL DISINTEGRATING TAB PO PRN (17:20)
[2024-01-18] MEDS ORDERED: LORazepam 2 MG/ML 1ML VIAL IV PRN (17:20)
[2024-01-18] MEDS ORDERED: KETOROLAC 30 MG/ML 1ML VIAL IV ONE ×2 (17:25→21:55)
[2024-01-18] MEDS ORDERED: OXYC-517 PO (18:56)
[2024-01-18] MEDS ORDERED: ONDA-84 PO (18:56)
[2024-01-18] MEDS ORDERED: SENN-186 PO (18:56)
[2024-01-18] MEDS ORDERED: ATOR80TA59 PO (18:56)
[2024-01-18] MEDS ORDERED: LEXA5TAB13 PO (18:56)
[2024-01-18] MEDS ORDERED: HOME MED LIST COMPLETE! XX SCH (19:00)
[2024-01-18] MEDS ORDERED: ACETAMINOPHEN TAB 650MG DOSE (2X325MG) PO SCH (21:00)
[2024-01-18] MEDS: ACETAMINOPHEN 500 MG TAB PO SCH (21:58)
[2024-01-18] MEDS: CYCLOBENZAPRINE 5MG TABLET PO PRN (23:52)
[2024-01-18] MEDS: MORPHINE 2 MG/ML 1ML VIAL IV PRN (23:56)
[2024-01-19] MEDS: KETOROLAC 30 MG/ML 1ML VIAL IV SCH (01:07)
[2024-01-19] MEDS: CYCLOBENZAPRINE 5MG TABLET PO PRN (08:34)
[2024-01-19] MEDS: SENNA 8.6 MG TAB (SENOKOT) PO SCH (08:34)
[2024-01-19] MEDS: CLOPIDOGREL 75 MG TAB PO SCH (08:34)
[2024-01-19] MEDS: methylPREDNISolone 125MG 2ML VIAL IV ONE (08:34)
[2024-01-19] MEDS: ASPIRIN 81MG ENTERIC TABLET PO SCH (08:35)
[2024-01-19] MEDS: KETOROLAC 30 MG/ML 1ML VIAL IV PRN (14:05)
[2024-01-19] MEDS: CYCLOBENZAPRINE 10MG TABLET PO SCH (21:26)
[2024-01-20] MEDS: predniSONE 20 MG TAB PO SCH (09:22)
[2024-01-20] MEDS: DOCUSATE SODIUM 100MG CAPSULE PO SCH (13:08)
[2024-01-20] MEDS: MOM 30ML SUSPENSION UDC PO PRN (18:33)
[2024-01-21] MEDS ORDERED: GLUCAGON INJ 1MG VIAL SC PRN (16:50)
[2024-01-21] MEDS ORDERED: DEXTROSE 50% 50ML SYRINGE IV PRN (16:50)
[2024-01-21] MEDS ORDERED: GLUCOSE 4 GM CHEW PO PRN (16:50)
[2024-01-21] MEDS ORDERED: ACETAMINOPHEN TAB 650MG DOSE (2X325MG) PO PRN (16:50)
[2024-01-21] MEDS: INSULIN LISPRO (NovoLOG) PER UNIT SC SCH ×2 (17:54→20:27)
[2024-01-21] MEDS: NS 1,000 ML IV SCH (18:59)
[2024-01-21 19:45] VITALS: BP 113/74; TEMP 97.3; O2SAT 94
[2024-01-21] MEDS: MAGNESIUM OXIDE 400MG TAB (MAG-OX) PO SCH (20:26)
[2024-01-21] MEDS: LEVEMIR (INSULIN DETEMIR) 1 UNITS/0.01ML SC SCH (20:26)
[2024-01-21] MEDS: HEPARIN SOD (PORCINE) 5000UNITS/ML 1ML VIAL/SYRINGE SC SCH (21:17)
[2024-01-22 05:17] VITALS: BP 136/74; TEMP 97.3; O2SAT 97
[2024-01-22] MEDS: LEVOTHYROXINE 100MCG TABLET (0.1MG) PO SCH (05:21)
[2024-01-22 05:28] LABS: HEMATOCRIT 28.4 % (36.0-47.0); HEMOGLOBIN 9.1 g/dl (12.0-15.5); MEAN CORPUSCULAR VOLUME 102.9 fl (80.0-96.0); PLATELET COUNT, AUTOMATED 119 10^3/uL (150-450); RED BLOOD COUNT 2.76 10^6/uL (4.00-5.40); WHITE BLOOD COUNT 18.5 10^3/uL (4.0-10.0)
[2024-01-22 05:58] LABS: ALBUMIN 3.1 G/DL (3.2-5.2); ALKALINE PHOSPHATASE 190 U/L (46-116); ALT/SGPT 25 U/L (7.0-40); AST/SGOT 31 U/L (<34); BILIRUBIN,TOTAL 0.3 MG/DL (0.3-1.2); BLOOD UREA NITROGEN 20 MG/DL (9-23); CALCIUM LEVEL 8.4 MG/DL (8.3-10.6); CARBON DIOXIDE LEVEL 30 MMOL/L (20-31); CHLORIDE LEVEL 106 MMOL/L (98-107); CREATININE FOR GFR 0.42 MG/DL (0.55-1.30); GLOMERULAR FILTRATION RATE > 60.0 (>45); GLUCOSE, FASTING 193 MG/DL (74-106); POTASSIUM SERUM 3.9 MMOL/L (3.5-5.1); SODIUM LEVEL 140 MMOL/L (136-145)
[2024-01-22] MEDS ORDERED: EMLA CREAM 5GM TUBE (LIDOCAINE/PRILOCAINE) TOP SCH (09:00)
[2024-01-22] MEDS ORDERED: SITagliptin 50 MG TAB (JANUVIA) PO SCH (09:00)
[2024-01-22] MEDS ORDERED: GLIMEPIRIDE 2 MG TAB PO SCH (09:00)
[2024-01-22] MEDS: SODIUM CHLORIDE 0.9% INJ 10 ML SYR IV SCH (09:02)
[2024-01-22] MEDS: ESCITALOPRAM OXALATE 5MG TABLET (LEXAPRO) PO SCH (09:03)
[2024-01-22] MEDS: LEVEMIR (INSULIN DETEMIR) 1 UNITS/0.01ML SC SCH ×2 (09:03→20:13)
[2024-01-22] MEDS: ATORVASTATIN 20 MG TAB PO SCH (09:04)
[2024-01-22] MEDS: ENALAPRIL MALEATE 10 MG TAB PO SCH (09:29)
[2024-01-22 14:00] VITALS: BP 111/58; TEMP 97.2; O2SAT 95
[2024-01-22] MEDS: LIDOCAINE 5% (LIDODERM) PATCH TD SCH (17:39)
[2024-01-22 19:50] VITALS: BP 140/72; TEMP 97.2; O2SAT 94
[2024-01-23 05:08] VITALS: BP 142/75; TEMP 97.5; O2SAT 96
[2024-01-23] MEDS: LEVEMIR (INSULIN DETEMIR) 1 UNITS/0.01ML SC SCH ×2 (08:31→21:04)
[2024-01-23] MEDS ORDERED: LEVEMIR (INSULIN DETEMIR) 1 UNITS/0.01ML SC SCH (09:00)
[2024-01-23 10:25] LABS: BASO % 0.3 % (0.0-1.0); EOS # 0.1 10^3/uL (0.0-0.5); EOS % 0.7 % (0.0-3.0); HEMATOCRIT 29.5 % (36.0-47.0); HEMOGLOBIN 9.7 g/dl (12.0-15.5); LYMPH # 2.8 10^3/uL (1.5-5.0); MEAN CORPUSCULAR HEMOGLOBIN 33.6 pg (27.0-33.0); MEAN CORPUSCULAR HGB CONC 32.9 g/dl (32.0-36.5); MEAN CORPUSCULAR VOLUME 102.1 fl (80.0-96.0); MONO # 0.5 10^3/uL (0.0-0.8); MONO % 3.3 % (2.0-8.0); NEUTROPHILS # 11.1 10^3/uL (1.5-8.5); NEUTROPHILS % 74.9 % (36.0-66.0); PLATELET COUNT, AUTOMATED 138 10^3/uL (150-450); RED BLOOD COUNT 2.89 10^6/uL (4.00-5.40); WHITE BLOOD COUNT 14.8 10^3/uL (4.0-10.0)
[2024-01-23 10:53] LABS: BLOOD UREA NITROGEN 23 MG/DL (9-23); CALCIUM LEVEL 8.5 MG/DL (8.3-10.6); CARBON DIOXIDE LEVEL 29 MMOL/L (20-31); CHLORIDE LEVEL 103 MMOL/L (98-107); CREATININE FOR GFR 0.39 MG/DL (0.55-1.30); GLOMERULAR FILTRATION RATE > 60.0 (>45); GLUCOSE, FASTING 243 MG/DL (74-106); SODIUM LEVEL 135 MMOL/L (136-145)
[2024-01-23 11:59] LABS: HEMOGLOBIN A1c 8.4 % (4.0-6.0)
[2024-01-23] MEDS ORDERED: MORPHINE 30 MG TAB **MSIR PO PRN (12:40)
[2024-01-23] MEDS: ACETAMINOPHEN 500 MG TAB PO SCH (13:20)
[2024-01-23 14:00] VITALS: BP 108/49; TEMP 97.2; O2SAT 96
[2024-01-23] MEDS: MORPHINE 30 MG TAB **MSIR PO PRN (17:34)
[2024-01-23 20:00] VITALS: BP 127/61; TEMP 97.3; O2SAT 97
[2024-01-24] MEDS: SODIUM CHLORIDE 0.9% INJ 10 ML SYR IV PRN (05:03)
[2024-01-24 05:36] LABS: BASO % 0.4 % (0.0-1.0); EOS # 0.1 10^3/uL (0.0-0.5); EOS % 1.3 % (0.0-3.0); HEMATOCRIT 29.1 % (36.0-47.0); HEMOGLOBIN 9.2 g/dl (12.0-15.5); LYMPH # 3.2 10^3/uL (1.5-5.0); LYMPH % 30.6 % (24.0-44.0); MEAN CORPUSCULAR HEMOGLOBIN 32.9 pg (27.0-33.0); MEAN CORPUSCULAR HGB CONC 31.6 g/dl (32.0-36.5); MEAN CORPUSCULAR VOLUME 103.9 fl (80.0-96.0); MONO # 0.6 10^3/uL (0.0-0.8); MONO % 5.5 % (2.0-8.0); NEUTROPHILS # 6.4 10^3/uL (1.5-8.5); NEUTROPHILS % 61.7 % (36.0-66.0); PLATELET COUNT, AUTOMATED 124 10^3/uL (150-450); WHITE BLOOD COUNT 10.4 10^3/uL (4.0-10.0)
[2024-01-24 06:00] VITALS: BP 125/60; TEMP 97.3; O2SAT 95
[2024-01-24] MEDS ORDERED: PILL CUTTER 1 EACH XX ONE (08:52)
[2024-01-24 09:00] VITALS: BP 133/64
[2024-01-24] MEDS: predniSONE 10MG TAB PO SCH (09:00)
[2024-01-24] MEDS ORDERED: CYCL10TA20 PO (10:22)
[2024-01-24] MEDS ORDERED: INSUDET SC (10:22)
[2024-01-24] MEDS ORDERED: ACET-897 PO (10:22)
[2024-01-24] MEDS ORDERED: MORP15TA2 PO (10:22)
[2024-01-24] MEDS ORDERED: MIRA3350 PO (10:22)
[2024-01-24] MEDS ORDERED: LIDO5TD TD (10:22)
[2024-01-24] MEDS ORDERED: PRED10TA2 PO (10:22)
== END 2024-01-24 13:31 | DRG 347 ==
LOC: M ED 09:11 → EDBD 09:11 → EDSEX 09:11 → M ED INP 17:16 → M MSPAV 21:27
PROVIDERS: ADMIT Internal Medicine; ATTEND Internal Medicine
DX: S22.068A Other fracture of T7-T8 thoracic vertebra, initial encounter for closed fracture (principal); E87.20 Acidosis, unspecified; C22.1 Intrahepatic bile duct carcinoma; C78.00 Secondary malignant neoplasm of unspecified lung; I10 Essential (primary) hypertension; D63.1 Anemia in chronic kidney disease; E11.65 Type 2 diabetes mellitus with hyperglycemia; E78.5 Hyperlipidemia, unspecified; E03.9 Hypothyroidism, unspecified; F32.A Depression, unspecified; Z86.73 Personal history of transient ischemic attack (TIA), and cerebral infarction without residual deficits; D72.829 Elevated white blood cell count, unspecified; G89.3 Neoplasm related pain (acute) (chronic); G47.33 Obstructive sleep apnea (adult) (pediatric); F41.9 Anxiety disorder, unspecified; E66.9 Obesity, unspecified; Z92.21 Personal history of antineoplastic chemotherapy; Z91.040 Latex allergy status; Z88.8 Allergy status to other drugs, medicaments and biological substances; Z79.899 Other long term (current) drug therapy; Z79.82 Long term (current) use of aspirin; Z87.891 Personal history of nicotine dependence; Z66 Do not resuscitate; Z79.52 Long term (current) use of systemic steroids; V43.92XA Unspecified car occupant injured in collision with other type car in traffic accident, initial encounter

== ENCOUNTER → 2024-01-31 | Outpatient (REF) | payer OTHER, MEDICARE ==
[~2024-01-31] MED LIST changes: +CYCL10TA20 PO; +INSUDET SC; +LIDO5TD TD; +MIRA3350 PO; +MORP15TA2 PO; +ONDA-84 PO; +PRED10TA2 PO; +SENN-186 PO
[2024-01-31 07:08] LABS: HEMATOCRIT 35.4 % (36.0-47.0); HEMOGLOBIN 11.5 g/dl (12.0-15.5); MEAN CORPUSCULAR HGB CONC 32.5 g/dl (32.0-36.5); MEAN CORPUSCULAR VOLUME 104.7 fl (80.0-96.0); PLATELET COUNT, AUTOMATED 230 10^3/uL (150-450); RED BLOOD COUNT 3.38 10^6/uL (4.00-5.40); WHITE BLOOD COUNT 5.1 10^3/uL (4.0-10.0)
[2024-01-31 07:42] LABS: BLOOD UREA NITROGEN 17 MG/DL (9-23); CALCIUM LEVEL 11.3 MG/DL (8.3-10.6); CARBON DIOXIDE LEVEL 32 MMOL/L (20-31); CHLORIDE LEVEL 96 MMOL/L (98-107); CREATININE FOR GFR 0.56 MG/DL (0.55-1.30); GLOMERULAR FILTRATION RATE > 60.0 (>45); GLUCOSE, FASTING 106 MG/DL (74-106); POTASSIUM SERUM 4.3 MMOL/L (3.5-5.1); SODIUM LEVEL 134 MMOL/L (136-145)
== END ==
LOC: SKLAB2 08:45
PROVIDERS: ATTEND Internal Medicine
DX: I10 Essential (primary) hypertension (principal); D64.89 Other specified anemias

== ENCOUNTER → 2024-02-01 | Outpatient (CLI) | payer OTHER, MEDICARE | LOC: M SOG 07:56 | PROVIDERS: ATTEND Orthopaedic Surgery | DX: M51.34 Other intervertebral disc degeneration, thoracic region (principal) ==

== ENCOUNTER → 2024-03-29 | Outpatient (REF) ==
[~2024-03-29] MED LIST changes: +ONDA-284 PO; -ONDA8TAB8 PO
[2024-03-29 21:29] LABS: BASO # 0.1 10^3/uL (0.0-0.2); BASO % 0.6 % (0.0-1.0); EOS # 0.1 10^3/uL (0.0-0.5); EOS % 0.4 % (0.0-3.0); HEMATOCRIT 31.6 % (36.0-47.0); HEMOGLOBIN 10.3 g/dl (12.0-15.5); LYMPH # 2.3 10^3/uL (1.5-5.0); LYMPH % 16.7 % (24.0-44.0); MEAN CORPUSCULAR HEMOGLOBIN 33.1 pg (27.0-33.0); MEAN CORPUSCULAR HGB CONC 32.6 g/dl (32.0-36.5); MEAN CORPUSCULAR VOLUME 101.6 fl (80.0-96.0); MONO # 1.1 10^3/uL (0.0-0.8); MONO % 8.4 % (2.0-8.0); NEUTROPHILS # 9.9 10^3/uL (1.5-8.5); NEUTROPHILS % 73.2 % (36.0-66.0); PLATELET COUNT, AUTOMATED 370 10^3/uL (150-450); RED BLOOD COUNT 3.11 10^6/uL (4.00-5.40); WHITE BLOOD COUNT 13.5 10^3/uL (4.0-10.0)
[2024-03-29 21:42] LABS: ALBUMIN 2.6 G/DL (3.2-5.2); ALKALINE PHOSPHATASE 158 U/L (46-116); ALT/SGPT 16 U/L (7.0-40); AST/SGOT 111 U/L (<34); BILIRUBIN,TOTAL 0.3 MG/DL (0.3-1.2); BLOOD UREA NITROGEN 14 MG/DL (9-23); CALCIUM LEVEL 12.7 MG/DL (8.3-10.6); CARBON DIOXIDE LEVEL 33 MMOL/L (20-31); CHLORIDE LEVEL 94 MMOL/L (98-107); CREATININE FOR GFR 0.52 MG/DL (0.55-1.30); GLOMERULAR FILTRATION RATE > 60.0 (>39); GLUCOSE, FASTING 151 MG/DL (74-106); POTASSIUM SERUM 4.3 MMOL/L (3.5-5.1); SODIUM LEVEL 130 MMOL/L (136-145); TOTAL PROTEIN 6.3 G/DL (5.7-8.2)
== END ==
LOC: SKLAB2 20:55
PROVIDERS: ATTEND Internal Medicine
DX: I10 Essential (primary) hypertension (principal); E03.9 Hypothyroidism, unspecified